=== PATIENT | male | born 1965 | race Caucasian/White ===

== ENCOUNTER → 2020-02-14 13:45 | Outpatient (ROUT) | payer MEDICARE, MEDICAID, SELFPAY ==
[2020-02-14 13:59] LABS: Add Manual Diff / Slide Review NO; Basophils Absolute Auto 100 /uL (0-100); Basophils Percent Auto 0.9 % (0-2); Eosinophils Absolute Auto 200 /uL (0-450); Eosinophils Percent Auto 2.5 % (2-4); Hematocrit 39.6 % (41-53); Hemoglobin 13.5 g/dL (13.5-17.5); Lymphocytes Absolute Auto 1700 /uL (1100-4500); Mean Corpuscular Hemoglobin 27.6 PG (26-34); Mean Corpuscular Volume 81.2 fL (80-100); Monocytes Absolute Auto 400 /uL (0-900); Monocytes Percent Auto 4.4 % (3-14); Neutrophils Absolute Auto 6000 /uL (1500-7000); Neutrophils Percent Auto 72.2 % (50-75); Platelet Count 257 X10^3/uL (150-400); Red Blood Cell Count 4.88 X10^6/uL (4.5-5.9); Red Cell Distribution Width 14.6 % (11.6-14.8); White Blood Cell Count 8.3 X10^3/uL (4.5-11.0)
[2020-02-14 14:03] LABS: Alanine Aminotransferase 19 IU/L (<50); Albumin 3.7 g/dL (3.5-5.0); Albumin Globulin Ratio 1.3 (1.0-2.8); Alkaline Phosphatase 90 U/L (38-126); Aspartate Aminotransferase 19 IU/L (17-59); BUN Creatinine Ratio 16.4 (6-22); Bilirubin Total 0.3 mg/dL (0.2-1.3); Blood Urea Nitrogen 20 mg/dL (9-20); Calcium 9.3 mg/dL (8.4-10.2); Carbon Dioxide 26 mmol/L (22-32); Chloride 100 mmol/L (98-107); Estimated Glomerular Filt Rate > 60.0 mL/min (>60); Globulin 2.9 g/dL (1.7-4.1); Glucose 252 mg/dL (70-100); HEMOLYSIS < 15 (0-50); Potassium 4.5 mmol/L (3.4-5.1); Sodium 135 mmol/L (137-145); Total Protein 6.6 g/dL (6.3-8.2)
== END ==
PROVIDERS: PCP Internal Medicine; Visit Provider Internal Medicine
DX: E11.9 Type 2 diabetes mellitus without complications (principal); E78.5 Hyperlipidemia, unspecified; I10 Essential (primary) hypertension
CPT/HCPCS: 80053; 83036; 85025

== ENCOUNTER → 2020-02-15 11:56 | Outpatient (CLI) | payer MEDICARE, MEDICAID, SELFPAY | PROVIDERS: PCP Internal Medicine; Referring Provider Internal Medicine; Visit Provider Family Medicine | DX: E11.622 Type 2 diabetes mellitus with other skin ulcer (principal); L97.821 Non-pressure chronic ulcer of other part of left lower leg limited to breakdown of skin; Z89.511 Acquired absence of right leg below knee; Z89.512 Acquired absence of left leg below knee; L08.9 Local infection of the skin and subcutaneous tissue, unspecified | CPT/HCPCS: 11042; 87070; 87077; 87147; 87186; 87205; 99203; 99214 ==

== ENCOUNTER → 2020-02-21 20:43 | Outpatient (ROUT) | payer MEDICARE, MEDICAID, SELFPAY ==
[2020-02-22 22:46] LABS: COVID19 Sendout Not Detected (Not Detect)
== END ==
PROVIDERS: PCP Internal Medicine; Visit Provider Internal Medicine
DX: Z11.59 Encounter for screening for other viral diseases (principal)
CPT/HCPCS: 87635

== ENCOUNTER → 2020-02-22 11:41 | Outpatient (CLI) | payer MEDICARE, MEDICAID, SELFPAY | PROVIDERS: PCP Internal Medicine; Referring Provider Internal Medicine; Visit Provider Family Medicine | DX: E11.622 Type 2 diabetes mellitus with other skin ulcer (principal); L97.121 Non-pressure chronic ulcer of left thigh limited to breakdown of skin; L08.9 Local infection of the skin and subcutaneous tissue, unspecified; B95.1 Streptococcus, group B, as the cause of diseases classified elsewhere; B95.61 Methicillin susceptible Staphylococcus aureus infection as the cause of diseases classified elsewhere; B96.5 Pseudomonas (aeruginosa) (mallei) (pseudomallei) as the cause of diseases classified elsewhere; Z89.512 Acquired absence of left leg below knee; Z89.511 Acquired absence of right leg below knee | CPT/HCPCS: 36415; 73590; 85651; 86140; 99213; 99214 ==

== ENCOUNTER → 2020-02-22 11:53 | Outpatient (CLI) | payer MEDICARE, MEDICAID, SELFPAY ==
--- NOTE | 2020-02-22 | DI.RAD.S_ITS ---
PROCEDURE: XR TIBIA FIBULA RT 2V INDICATIONS: Local infection of the skin and subcutaneous tissue, unspeci TECHNIQUE: 2 views of the tibia and fibula were acquired. COMPARISON: None. FINDINGS: Bones: No fractures or dislocations. No suspicious bony lesions. Sharply demarcated below-knee amputation. No sign of osteomyelitis. Soft tissues: No suspicious soft tissue calcifications or masses. Several scattered surgical clips in the soft tissues, a small amount of focal gas is seen at the superficial border of the soft tissue stump of the BKA, medially, which appears to represent a cutaneous defect. IMPRESSION: Prior BKA, cutaneous laceration or ulceration medially, near the inferior aspect of the soft tissue stump. No osteomyelitis. Dictated by: Jaden Pearson M.D. on 02/22/2020 at 13:33 Approved by: Jaden Pearson M.D. on 02/22/2020 at 13:35
[2020-02-22 14:00] LABS: Erythrocyte Sedimentation Rate 30 MM/HR (0-15)
[2020-02-22 14:15] LABS: C-Reactive Protein Quant 1.3 mg/dL (<1.0)
== END ==
PROVIDERS: PCP Internal Medicine; Referring Provider Family Medicine; Visit Provider Family Medicine
DX: E11.622 Type 2 diabetes mellitus with other skin ulcer (principal); L97.121 Non-pressure chronic ulcer of left thigh limited to breakdown of skin; L08.9 Local infection of the skin and subcutaneous tissue, unspecified; Z89.512 Acquired absence of left leg below knee
CPT/HCPCS: 36415; 73590; 85651; 86140

== ENCOUNTER → 2020-02-23 12:52 | Outpatient (CLI) | payer MEDICARE, MEDICAID, SELFPAY ==
--- NOTE | 2020-02-23 | DI.RAD.S_ITS ---
PROCEDURE: XR CHEST 1V INDICATIONS: wound infection TECHNIQUE: One view of the chest was acquired. COMPARISON: None. FINDINGS: Surgical changes and devices: A PICC line extends from right-sided approach crossing the upper chest and extending inferiorly into the superior vena cava, with tip just below the azygos arch area.. Lungs and pleura: Lungs are clear considering reduced inspiratory volume. No pleural effusions or pneumothorax. Much of the left chest is not evaluated by this study. Mediastinum: Mediastinal contours appear normal. Heart size is normal. Bones and chest wall: No suspicious bony lesions. Overlying soft tissues appear unremarkable. IMPRESSION: PICC line in normal position from right-sided approach. Reduced inspiratory volume. Dictated by: Jaden Pearson M.D. on 02/23/2020 at 14:47 Approved by: Jaden Pearson M.D. on 02/23/2020 at 14:48
== END ==
PROVIDERS: PCP Internal Medicine; Referring Provider Internal Medicine; Visit Provider Internal Medicine
DX: Z45.2 Encounter for adjustment and management of vascular access device (principal); L08.89 Other specified local infections of the skin and subcutaneous tissue
CPT/HCPCS: 71045

== ENCOUNTER → 2020-02-27 09:55 | Outpatient (CLI) | payer MEDICARE, MEDICAID, SELFPAY | PROVIDERS: PCP Internal Medicine; Referring Provider Internal Medicine; Visit Provider Family Medicine | DX: E11.622 Type 2 diabetes mellitus with other skin ulcer (principal); L97.121 Non-pressure chronic ulcer of left thigh limited to breakdown of skin; L08.9 Local infection of the skin and subcutaneous tissue, unspecified; L53.8 Other specified erythematous conditions; Z89.511 Acquired absence of right leg below knee; Z89.512 Acquired absence of left leg below knee | CPT/HCPCS: 11042; 99214 ==

== ENCOUNTER → 2020-03-07 08:53 | Outpatient (CLI) | payer MEDICARE, MEDICAID, SELFPAY | PROVIDERS: PCP Internal Medicine; Referring Provider Internal Medicine; Visit Provider Family Medicine | DX: E11.622 Type 2 diabetes mellitus with other skin ulcer (principal); L97.121 Non-pressure chronic ulcer of left thigh limited to breakdown of skin; Z89.511 Acquired absence of right leg below knee; Z89.512 Acquired absence of left leg below knee; L08.9 Local infection of the skin and subcutaneous tissue, unspecified; Z79.2 Long term (current) use of antibiotics | CPT/HCPCS: 11042; 99213 ==

== ENCOUNTER → 2020-03-14 09:59 | Outpatient (CLI) | payer MEDICARE, MEDICAID, SELFPAY | PROVIDERS: PCP Internal Medicine; Referring Provider Internal Medicine; Visit Provider Family Medicine | DX: L97.821 Non-pressure chronic ulcer of other part of left lower leg limited to breakdown of skin (principal); Z89.512 Acquired absence of left leg below knee; E11.622 Type 2 diabetes mellitus with other skin ulcer; E11.40 Type 2 diabetes mellitus with diabetic neuropathy, unspecified | CPT/HCPCS: 11042 ==

== ENCOUNTER → 2020-03-21 10:17 | Outpatient (CLI) | payer MEDICARE, MEDICAID, SELFPAY | PROVIDERS: PCP Internal Medicine; Referring Provider Internal Medicine; Visit Provider Family Medicine | DX: E11.622 Type 2 diabetes mellitus with other skin ulcer (principal); L97.121 Non-pressure chronic ulcer of left thigh limited to breakdown of skin; E11.21 Type 2 diabetes mellitus with diabetic nephropathy; Z89.511 Acquired absence of right leg below knee; Z89.512 Acquired absence of left leg below knee; Z48.01 Encounter for change or removal of surgical wound dressing | CPT/HCPCS: 11042; 36415; 80048; 80061; 82043; 82570; 83036; 84443; 99212 ==

== ENCOUNTER → 2020-03-21 10:31 | Outpatient (CLI) | payer MEDICARE, MEDICAID, SELFPAY ==
[2020-03-21 11:33] LABS: Hemoglobin A1C% w Est Avg Glu 8.8 % (4.0-6.0)
[2020-03-21 11:39] LABS: Blood Urea Nitrogen 25 mg/dL (9-20); Calcium 9.8 mg/dL (8.4-10.2); Carbon Dioxide 32 mmol/L (22-32); Chloride 98 mmol/L (98-107); Cholesterol 111 mg/dL (140-199); Estimated Glomerular Filt Rate 59.7 mL/min (>60); Glucose 140 mg/dL (70-100); HDL Cholesterol 39 mg/dL (40-60); HEMOLYSIS < 15 (0-50); LDL Cholesterol Calculated 48 mg/dL (<100); Potassium 4.2 mmol/L (3.4-5.1); Sodium 137 mmol/L (137-145); Triglycerides 121 mg/dL (35-150)
[2020-03-21 11:40] LABS: Creatinine Urine Random 68.6 mg/dL
[2020-03-21 12:08] LABS: Thyroid Stimulating Hormone 2.45 uIU/mL (0.47-4.68)
[2020-03-21 12:16] LABS: Microalbumi Creatinin Ratio Ur 5612.2 ug/mg CR (<30)
== END ==
PROVIDERS: PCP Internal Medicine; Referring Provider Nurse Practitioner Family; Visit Provider Nurse Practitioner Family
DX: E11.21 Type 2 diabetes mellitus with diabetic nephropathy (principal)
CPT/HCPCS: 36415; 80048; 80061; 82043; 82570; 83036; 84443

== ENCOUNTER → 2020-03-28 10:30 | Outpatient (CLI) | payer MEDICARE, MEDICAID, SELFPAY | PROVIDERS: PCP Internal Medicine; Referring Provider Internal Medicine; Visit Provider Family Medicine | DX: Z89.512 Acquired absence of left leg below knee (principal); Z48.01 Encounter for change or removal of surgical wound dressing | CPT/HCPCS: 99212 ==

== ENCOUNTER → 2020-05-08 08:06 | Outpatient (ROUT) | payer MEDICARE, MEDICAID, SELFPAY ==
[2020-05-08 09:27] LABS: BUN Creatinine Ratio 17.7 (6-22); Blood Urea Nitrogen 26 mg/dL (9-20); Calcium 9.5 mg/dL (8.4-10.2); Carbon Dioxide 30 mmol/L (22-32); Chloride 98 mmol/L (98-107); Estimated Glomerular Filt Rate 49.6 mL/min (>60); Glucose 172 mg/dL (70-100); HEMOLYSIS < 15 (0-50); Potassium 4.1 mmol/L (3.4-5.1); Sodium 136 mmol/L (137-145)
== END ==
PROVIDERS: PCP Internal Medicine; Visit Provider Nurse Practitioner Family
DX: E11.69 Type 2 diabetes mellitus with other specified complication (principal); Z79.4 Long term (current) use of insulin; R60.9 Edema, unspecified
CPT/HCPCS: 36415; 80048; 83036

== ENCOUNTER → 2020-05-17 08:31 | Outpatient (ROUT) | payer MEDICARE, MEDICAID, SELFPAY ==
[2020-05-17 09:18] LABS: Blood Urea Nitrogen 24 mg/dL (9-20); Carbon Dioxide 30 mmol/L (22-32); Chloride 99 mmol/L (98-107); Estimated Glomerular Filt Rate 55.6 mL/min (>60); Glucose 189 mg/dL (70-100); HEMOLYSIS < 15 (0-50); Hemoglobin A1C% w Est Avg Glu 8.1 % (4.0-6.0); Potassium 3.5 mmol/L (3.4-5.1); Sodium 137 mmol/L (137-145)
== END ==
PROVIDERS: PCP Internal Medicine; Visit Provider Nurse Practitioner Gerontology
DX: E11.9 Type 2 diabetes mellitus without complications (principal); N17.9 Acute kidney failure, unspecified
CPT/HCPCS: 36415; 80048; 83036

== ENCOUNTER 2020-05-24 17:25 | Emergency (ER) | payer MEDICARE, MEDICAID, SELFPAY ==
[2020-05-24] VITALS (12 sets, daily range): BP systolic 81–137; BP diastolic 54–63; PULSE 69–76; RESP 16–24; TEMP 36.4; O2SAT 95–100; BMI 40.6
[2020-05-24 17:50] LABS: Add Manual Diff / Slide Review NO; Basophils Absolute Auto 100 /uL (0-100); Basophils Percent Auto 0.8 % (0-2); Eosinophils Absolute Auto 200 /uL (0-450); Eosinophils Percent Auto 1.6 % (2-4); Hematocrit 38.6 % (41-53); Hemoglobin 12.8 g/dL (13.5-17.5); Lymphocytes Absolute Auto 1700 /uL (1100-4500); Lymphocytes Percent Auto 13.5 % (25-40); Mean Corpuscular HGB Conc 33.2 % (30-36); Mean Corpuscular Hemoglobin 26.9 PG (26-34); Monocytes Absolute Auto 600 /uL (0-900); Monocytes Percent Auto 4.6 % (3-14); Neutrophils Absolute Auto 10300 /uL (1500-7000); Neutrophils Percent Auto 79.5 % (50-75); Platelet Count 253 X10^3/uL (150-400); Red Blood Cell Count 4.76 X10^6/uL (4.5-5.9); Red Cell Distribution Width 15.7 % (11.6-14.8); White Blood Cell Count 12.9 X10^3/uL (4.5-11.0)
[2020-05-24 17:52] LABS: INR 1.1 (0.9-1.3)
[2020-05-24 17:55] LABS: PTT Partial Thromboplastin Tim 35 SECONDS (26.4-36.2)
[2020-05-24 17:57] LABS: Alanine Aminotransferase 19 IU/L (<50); Albumin 4.4 g/dL (3.5-5.0); Albumin Globulin Ratio 1.4 (1.0-2.8); Alkaline Phosphatase 86 U/L (38-126); Aspartate Aminotransferase 24 IU/L (17-59); BUN Creatinine Ratio 13.2 (6-22); Bilirubin Total 0.5 mg/dL (0.2-1.3); Blood Urea Nitrogen 49 mg/dL (9-20); Calcium 9.2 mg/dL (8.4-10.2); Carbon Dioxide 24 mmol/L (22-32); Chloride 100 mmol/L (98-107); Estimated Glomerular Filt Rate 17.1 mL/min (>60); Globulin 3.2 g/dL (1.7-4.1); Glucose 192 mg/dL (70-100); HEMOLYSIS < 15 (0-50); Lipase 51 U/L (23-300); Potassium 4.1 mmol/L (3.4-5.1); Sodium 138 mmol/L (137-145); Total Protein 7.6 g/dL (6.3-8.2)
--- NOTE | 2020-05-24 18:05 | ED.NAVMDI ---
HPI - Nausea/Vomiting/Diarrhea General Chief complaint: Nausea/Vomiting/Diarrhea Stated complaint: Abd Pain Time Seen by Provider: 05/24/20 17:39 Source: patient and EMS Mode of arrival: EMS Limitations: no limitations History of Present Illness HPI Narrative: 54-year-old gentleman who lives at [facility] with a history of morbid obesity, diabetes, hypertension, hyperlipidemia, cardiovascular disease, reflux who presents with 24 hours of diarrhea low-grade abdominal pain and orthostasis. The diarrhea started yesterday with some mild abdominal cramping cramping got worsened includes mostly the left lower quadrant but does extend to the right lower quadrant and left upper quadrant as well. The pain at one point was as bad as 6/10 and on presentation to the emergency department is currently 4/10 and a crampy discomfort. Describes the diarrhea as watery without any black stool or bloody stool. He denies any fevers. He states he has been somewhat nauseated but has not had any vomiting. He has had no cough, no chest pain no palpitations. He does note that he has been dizzy when sitting up over the course of today. Review of Systems Review of Systems Narrative: Pertinent positive and negative findings as per HPI Remainder of review of systems is otherwise unremarkable for Constitutional: Fevers, chills, weakness ENT: No sore throat, neck pain, ear pain : Dysuria, hematuria, flank pain MS: Muscle weakness, numbness, joint swelling or warmth Skin: Rashes, nonhealing lesions Neuro: dizziness, tingling Patient History Medical History ASCVD (arteriosclerotic cardiovascular disease) (Acute) Diabetes (Acute) Hyperlipidemia (Acute) Hypertension (Acute) Hypothyroidism (acquired) (Acute) Morbid obesity (Acute) Surgical History S/P bilateral BKA (below knee amputation) (Acute) Social History Smoking Status: Current some day smoker Smoking Status: Current some day smoker tobacco type: cigarettes alcohol intake frequency: holidays/special occasions only Substance Use Type: does not use Exam Narrative Exam Narrative: General: Morbidly obese, in no acute distress. Able to give a complete and coherent history. Well-nourished well-developed HEENT: Moist mucous membranes, normal sclera with reactive pupils, Neck: No JVD, supple Respiratory: Lungs are clear to auscultation, no wheezing no rales no rhonchi. Full and symmetrical air movement Cardiac: Regular rate and rhythm no murmurs no bruits Abdomen: Soft with moderate tenderness in the left lower quadrant, mild tenderness right lower quadrant left upper quadrant and no rebound or guarding, good bowel tones, no flank pain Skin: Warm and dry, no rashes Neurologic: Grossly neurologically intact with no obvious asymmetries or abnormalities Extremities: Bilateral BKA with stumps well-healed, No trauma, well perfused Psych: Cooperative, appropriate insight and affect Initial Vital Signs Initial Vital Signs: Vital Signs Temperature 97.6 F 05/24/20 17:33 Pulse Rate 73 05/24/20 17:33 Respiratory Rate 24 05/24/20 17:33 Blood Pressure 81/54 L 05/24/20 17:33 Pulse Oximetry 100 05/24/20 17:33 Course Orders Ordered: ED Orders 05/24/20 17:20 Complete Blood Count AUTO DIFF Stat Comprehensive Metabolic Panel Stat Lipase Stat Partial Thromboplastin Time Stat Prothrombin Time INR Stat 05/24/20 17:31 EKG-12 Lead Stat 05/24/20 17:49 Blood Culture Stat 05/24/20 17:51 Lactate (Lactic Acid) Stat 05/24/20 18:23 CT abdomen pelvis wo con Stat 05/24/20 18:24 GI Panel (Film Array) Stat 05/24/20 20:25 COVID19 -ED/INPAT/OR/L&D Stat Discontinued Medications Sodium Chloride (Normal Saline 0.9%) 1,000 mls @ 1,000 mls/hr IV BOLUS ONE Stop: 05/24/20 19:23 Last Infusion: 05/24/20 22:39 Dose: 0 mls/hr Documented by: Admin: 05/24/20 18:49 Dose: 1,000 mls/hr Documented by: KHADRA Sodium Chloride (Normal Saline 0.9%) 1,000 mls @ 1,000 mls/hr IV BOLUS ONE Stop: 05/25/20 00:14 Last Infusion: 05/25/20 00:24 Dose: 1,000 mls/hr Documented by: Admin: 05/24/20 23:16 Dose: 1,000 mls/hr Documented by: KHADRA Vital Signs Vital signs: Vital Signs - 8 hr 05/24/20 18:15 05/24/20 18:45 05/24/20 19:30 Pulse Rate 69 73 69 Respiratory Rate 23 16 18 Blood Pressure 137/61 104/56 L 106/58 L Pulse Oximetry 96 97 97 05/24/20 21:00 05/24/20 21:29 05/24/20 21:30 Pulse Rate 73 72 72 Respiratory Rate 18 Blood Pressure 116/57 L Pulse Oximetry 98 98 98 05/24/20 21:31 05/24/20 22:00 05/24/20 22:01 Pulse Rate 72 70 71 Respiratory Rate Blood Pressure 110/54 L 120/63 Pulse Oximetry 98 95 96 05/24/20 22:30 05/24/20 23:00 Pulse Rate 76 75 Respiratory Rate Blood Pressure Pulse Oximetry 97 98 MDM - Nausea/Vomiting/Diarrhea Medical Records Attestation: I reviewed the patient's medical records. Lab Data Attestation: I reviewed the patient's lab results. Lab results narrative: Patient had a routine screening covered swab done at his assisted living facility this morning. Result diagrams: 05/24/20 17:20 05/24/20 17:20 Labs: Lab Results 05/24/20 05/24/20 05/24/20 Range/Units 17:20 17:20 17:20 WBC 12.9 H (4.5-11.0) X10^3/uL RBC 4.76 (4.5-5.9) X10^6/uL Hgb 12.8 L (13.5-17.5) g/dL Hct 38.6 L (41-53) % MCV 81.0 (80-100) fL MCH 26.9 (26-34) PG MCHC 33.2 (30-36) % RDW 15.7 H (11.6-14.8) % Plt Count 253 (150-400) X10^3/uL Neut % (Auto) 79.5 H (50-75) % Lymph % (Auto) 13.5 L (25-40) % [place] % (Auto) 4.6 (3-14) % Eos % (Auto) 1.6 L (2-4) % Baso % (Auto) 0.8 (0-2) % Neut # (Auto) 32458 H (3127-1261) /uL Lymph # (Auto) 1700 (6623-4911) /uL [place] # (Auto) 600 (0-900) /uL Eos # (Auto) 200 (0-450) /uL Baso # (Auto) 100 (0-100) /uL PT 13.0 H (10.1-12.7) SECONDS INR 1.1 (0.9-1.3) APTT 35 (26.4-36.2) SECONDS Sodium 138 (137-145) mmol/L Potassium 4.1 (3.4-5.1) mmol/L Chloride 100 (98-107) mmol/L Carbon Dioxide 24 (22-32) mmol/L BUN 49 H (9-20) mg/dL Creatinine 3.70 H (0.66-1.25) mg/dL Estimated GFR 17.1 L (>60) mL/min BUN/Creatinine Ratio 13.2 (6-22) Glucose 192 H (70-100) mg/dL Lactate (0.7-2.1) mmol/L Calcium 9.2 (8.4-10.2) mg/dL Total Bilirubin 0.5 (0.2-1.3) mg/dL AST 24 (17-59) IU/L ALT 19 (<50) IU/L Alkaline Phosphatase 86 (38-126) U/L Total Protein 7.6 (6.3-8.2) g/dL Albumin 4.4 (3.5-5.0) g/dL Globulin 3.2 (1.7-4.1) g/dL Albumin/Globulin Ratio 1.4 (1.0-2.8) Lipase 51 (23-300) U/L Stl C. cayetanensis PCR (Not Detect) Stool Rotavirus (PCR) (Not Detect) Stool Adenovirus (PCR) (Not Detect) Stool Astrovirus (PCR) (Not Detect) Stool Cryptosporidium PCR (Not Detect) Stl E.coli Shiga Tox PCR (Not Detect) St Sh/Enteroin Ecoli PCR (Not Detect) Stool E coli O157 PCR Stl Enterotoxigenic E PCR (Not Detect) Stool EPEC (PCR) (Not Detect) Stl E. histolytica PCR (Not Detect) Stool Giardia Lamblia PCR (Not Detect) Stool Sapovirus (PCR) (Not Detect) Stl P. shigelloides PCR (Not Detect) St Y.enterocolitica PCR (Not Detect) Stool Vibrio (PCR) (Not Detect) Stl Vibrio cholerae PCR (Not Detect) Stl Enteroaggr Ecoli PCR (Not Detect) Stl Norovirus GI/GII PCR (Not Detect) Campylobacter (PCR) (Not Detect) C. difficile Tox (PCR) (Not Detect) COVID-19 PCR (Negative) Salmonella (PCR) (Not Detect) 05/24/20 05/24/20 05/24/20 Range/Units 17:51 17:51 18:24 WBC (4.5-11.0) X10^3/uL RBC (4.5-5.9) X10^6/uL Hgb (13.5-17.5) g/dL Hct (41-53) % MCV (80-100) fL MCH (26-34) PG MCHC (30-36) % RDW (11.6-14.8) % Plt Count (150-400) X10^3/uL Neut % (Auto) (50-75) % Lymph % (Auto) (25-40) % [place] % (Auto) (3-14) % Eos % (Auto) (2-4) % Baso % (Auto) (0-2) % Neut # (Auto) (6568-3194) /uL Lymph # (Auto) (9630-0704) /uL [place] # (Auto) (0-900) /uL Eos # (Auto) (0-450) /uL Baso # (Auto) (0-100) /uL PT (10.1-12.7) SECONDS INR (0.9-1.3) APTT (26.4-36.2) SECONDS Sodium (137-145) mmol/L Potassium (3.4-5.1) mmol/L Chloride (98-107) mmol/L Carbon Dioxide (22-32) mmol/L BUN (9-20) mg/dL Creatinine (0.66-1.25) mg/dL Estimated GFR (>60) mL/min BUN/Creatinine Ratio (6-22) Glucose (70-100) mg/dL Lactate 1.5 Cancelled (0.7-2.1) mmol/L Calcium (8.4-10.2) mg/dL Total Bilirubin (0.2-1.3) mg/dL AST (17-59) IU/L ALT (<50) IU/L Alkaline Phosphatase (38-126) U/L Total Protein (6.3-8.2) g/dL Albumin (3.5-5.0) g/dL Globulin (1.7-4.1) g/dL Albumin/Globulin Ratio (1.0-2.8) Lipase (23-300) U/L Stl C. cayetanensis PCR Not detected (Not Detect) Stool Rotavirus (PCR) Not detected (Not Detect) Stool Adenovirus (PCR) Not detected (Not Detect) Stool Astrovirus (PCR) Not detected (Not Detect) Stool Cryptosporidium PCR Not detected (Not Detect) Stl E.coli Shiga Tox PCR Not detected (Not Detect) St Sh/Enteroin Ecoli PCR Not detected (Not Detect) Stool E coli O157 PCR Not Reportable Stl Enterotoxigenic E PCR Not detected (Not Detect) Stool EPEC (PCR) Not detected (Not Detect) Stl E. histolytica PCR Not detected (Not Detect) Stool Giardia Lamblia PCR Not detected (Not Detect) Stool Sapovirus (PCR) Not detected (Not Detect) Stl P. shigelloides PCR Not detected (Not Detect) St Y.enterocolitica PCR Not detected (Not Detect) Stool Vibrio (PCR) Not detected (Not Detect) Stl Vibrio cholerae PCR Not detected (Not Detect) Stl Enteroaggr Ecoli PCR Not detected (Not Detect) Stl Norovirus GI/GII PCR Not detected (Not Detect) Campylobacter (PCR) Not detected (Not Detect) C. difficile Tox (PCR) Not detected (Not Detect) COVID-19 PCR (Negative) Salmonella (PCR) Not detected (Not Detect) 05/24/20 Range/Units 20:25 WBC (4.5-11.0) X10^3/uL RBC (4.5-5.9) X10^6/uL Hgb (13.5-17.5) g/dL Hct (41-53) % MCV (80-100) fL MCH (26-34) PG MCHC (30-36) % RDW (11.6-14.8) % Plt Count (150-400) X10^3/uL Neut % (Auto) (50-75) % Lymph % (Auto) (25-40) % [place] % (Auto) (3-14) % Eos % (Auto) (2-4) % Baso % (Auto) (0-2) % Neut # (Auto) (0575-8592) /uL Lymph # (Auto) (4051-6027) /uL [place] # (Auto) (0-900) /uL Eos # (Auto) (0-450) /uL Baso # (Auto) (0-100) /uL PT (10.1-12.7) SECONDS INR (0.9-1.3) APTT (26.4-36.2) SECONDS Sodium (137-145) mmol/L Potassium (3.4-5.1) mmol/L Chloride (98-107) mmol/L Carbon Dioxide (22-32) mmol/L BUN (9-20) mg/dL Creatinine (0.66-1.25) mg/dL Estimated GFR (>60) mL/min BUN/Creatinine Ratio (6-22) Glucose (70-100) mg/dL Lactate (0.7-2.1) mmol/L Calcium (8.4-10.2) mg/dL Total Bilirubin (0.2-1.3) mg/dL AST (17-59) IU/L ALT (<50) IU/L Alkaline Phosphatase (38-126) U/L Total Protein (6.3-8.2) g/dL Albumin (3.5-5.0) g/dL Globulin (1.7-4.1) g/dL Albumin/Globulin Ratio (1.0-2.8) Lipase (23-300) U/L Stl C. cayetanensis PCR (Not Detect) Stool Rotavirus (PCR) (Not Detect) Stool Adenovirus (PCR) (Not Detect) Stool Astrovirus (PCR) (Not Detect) Stool Cryptosporidium PCR (Not Detect) Stl E.coli Shiga Tox PCR (Not Detect) St Sh/Enteroin Ecoli PCR (Not Detect) Stool E coli O157 PCR Stl Enterotoxigenic E PCR (Not Detect) Stool EPEC (PCR) (Not Detect) Stl E. histolytica PCR (Not Detect) Stool Giardia Lamblia PCR (Not Detect) Stool Sapovirus (PCR) (Not Detect) Stl P. shigelloides PCR (Not Detect) St Y.enterocolitica PCR (Not Detect) Stool Vibrio (PCR) (Not Detect) Stl Vibrio cholerae PCR (Not Detect) Stl Enteroaggr Ecoli PCR (Not Detect) Stl Norovirus GI/GII PCR (Not Detect) Campylobacter (PCR) (Not Detect) C. difficile Tox (PCR) (Not Detect) COVID-19 PCR Negative (Negative) Salmonella (PCR) (Not Detect) Urine Dip Bedside Urine Glucose Negative Bedside Urine Bilirubin - Negative Bedside Urine Ketone - Negative Urine Specific [place] 1.025 Bedside Urine Occult Blood - Negative Bedside Urine pH 5.5 Bedside Urine Protein - Negative Bedside Urine Urobilinogen - Negative Bedside Urine Nitrite - Negative Bedside Urine Leukocytes - Negative Esterase Imaging Data CT scan - abdomen/pelvis: Radiologist's Impression: FINDINGS: Image quality: Excellent. ABDOMEN: Lung bases: Lung bases are clear. Heart size is normal. Solid organs: Liver is normal in size. Gallbladder negative . Pancreas is normal in contours. Spleen is normal in size. No adrenal nodules. Hypoattenuating renal foci, statistically cysts, although technically indeterminate in the absence of IV contrast. Large amount of fluid and gas present within the colon raising possibility of enterocolitis. No free fluid or air. There are presumed appendicoliths seen however no definite pathologic dilatation or periappendiceal inflammatory fat stranding. Nodes and vessels: No retroperitoneal or mesenteric adenopathy by size criteria. Aorta and inferior vena cava are normal in caliber. Miscellaneous: No ventral hernias. PELVIS: Genitourinary: Bladder wall thickness is normal. Miscellaneous: No inguinal hernias or adenopathy. Bones: No vertebral body compression fracture. Spondylytic changes and facet arthropathy. Presumed L5 vertebral body hemangioma with internal trabecula. IMPRESSION: Incidentally noted appendicoliths without other CT evidence of acute appendicitis No hydronephrosis Large amount of fluid and gas within the colon raising possibility of enterocolitis, and/or malabsorption. Dictated by: Erik Najera M.D. on 05/24/2020 at 18:49 MDM Narrative Medical decision making narrative: 54-year-old gentleman final presents with hypotension and dizziness after 24 hours of diarrhea with a blood pressure of 81/54. Responds nicely to a L of fluid with blood pressure up to 130 systolic range. Labs reviewed and is noted to have a jump in creatinine over the last 7 days from 1.3-3.4. Stool you sent for PCR. He does have mildly tender abdomen slightly elevated white count at 12.9 with slight left shift. Given the pain and the acute change to renal function will go ahead and do a CT scan without contrast today. Without any crackles or JVD or other clinical signs or symptoms of congestive heart failure at this time will go ahead and give him 2nd L of fluid. Will go ahead and check a covid screen with anticipation of admission. We will need to be transferred to facility where Nephrology and dialysis is available if required. CT scan suggests an enterocolitis, stool results are currently pending, in light of his acute renal failure secondary to diarrhea will work on appropriate transfer and admission. He is hemodynamically clinically stable at this time. discussed transfer to [facility]. 8:43pm spoke with [facility]. Hospitalist Dr. Kelley. Transfer is accepted. Stool PCR returns negative for all enteric pathogens including Clostridium difficile. 9:50 Pt has decided he does not want to go to [facility] and for to go to [facility]. Beds are available at [facility]. Has spoken with Dr. Lorenzo Chandler, hospitalist. Will except the patient in transfer. Discharge Plan Departure Patient Disposition: [facility] Clinical Impression: Acute dehydration Diarrhea Qualifiers: Diarrhea type: unspecified type Qualified Code(s): R19.7 - Diarrhea, unspecified Acute renal failure Qualifiers: Acute renal failure type: unspecified Qualified Code(s): N17.9 - Acute kidney failure, unspecified Discharge Date/Time: 05/24/20 23:20 Referrals: Tavia Zarate MD [Primary Care Provider] -
[2020-05-24 18:17] LABS: Lactate (Lactic Acid) 1.5 mmol/L (0.7-2.1)
--- NOTE | 2020-05-24 18:23 | DI.CT.S_ITS ---
PROCEDURE: CT ABDOMEN PELVIS WO CON INDICATIONS: abd pain (LLQ), diarrhea, new renal failure TECHNIQUE: Noncontrast 5 mm thick sections acquired from the diaphragms to the symphysis. 5 mm coronal and sagittal reformats were then performed. For radiation dose reduction, the following was used: automated exposure control, adjustment of mA and/or kV according to patient size. COMPARISON: None. FINDINGS: Image quality: Excellent. ABDOMEN: Lung bases: Lung bases are clear. Heart size is normal. Solid organs: Liver is normal in size. Gallbladder negative . Pancreas is normal in contours. Spleen is normal in size. No adrenal nodules. Hypoattenuating renal foci, statistically cysts, although technically indeterminate in the absence of IV contrast. Large amount of fluid and gas present within the colon raising possibility of enterocolitis. No free fluid or air. There are presumed appendicoliths seen however no definite pathologic dilatation or periappendiceal inflammatory fat stranding. Nodes and vessels: No retroperitoneal or mesenteric adenopathy by size criteria. Aorta and inferior vena cava are normal in caliber. Miscellaneous: No ventral hernias. PELVIS: Genitourinary: Bladder wall thickness is normal. Miscellaneous: No inguinal hernias or adenopathy. Bones: No vertebral body compression fracture. Spondylytic changes and facet arthropathy. Presumed L5 vertebral body hemangioma with internal trabecula. IMPRESSION: Incidentally noted appendicoliths without other CT evidence of acute appendicitis No hydronephrosis Large amount of fluid and gas within the colon raising possibility of enterocolitis, and/or malabsorption. Dictated by: Erik Najera M.D. on 05/24/2020 at 18:49 Approved by: Erik Najera M.D. on 05/24/2020 at 18:54
[2020-05-24] MEDS: SODIUM CHLORIDE 0.9% 1,000 ML 1000 ML IV ×2 (18:49→23:16)
[2020-05-24 20:43] LABS: Adenovirus F 40/41 Not Detected (Not Detect); Astrovirus Not Detected (Not Detect); Campylobacter Not Detected (Not Detect); Clostridium difficile toxin AB Not Detected (Not Detect); Cryptosporidium Not Detected (Not Detect); Cyclospora cayetanensis Not Detected (Not Detect); Entamoeba histolytica Not Detected (Not Detect); Enteroaggregative E.coli Not Detected (Not Detect); Enteropathogenic E.coli Not Detected (Not Detect); Enterotoxigenic E.coli It/st Not Detected (Not Detect); Giardia lamblia Not Detected (Not Detect); Norovirus GI/GII Not Detected (Not Detect); Plesiomonsa shigelloides Not Detected (Not Detect); Rotavirus A Not Detected (Not Detect); Salmonella Not Detected (Not Detect); Sapovirus Not Detected (Not Detect); Shiga-like toxin-prod E.coli Not Detected (Not Detect); Shigella/Enteroinvasive E.coli Not Detected (Not Detect); Vibrio Not Detected (Not Detect); Vibrio cholerae Not Detected (Not Detect); Yersinia enterocolitica Not Detected (Not Detect)
[2020-05-24 23:03] LABS: COVID19 -Nasal RAPID Negative (Negative)
== END 2020-05-24 23:20 | disposition short-term general hospital (02) ==
PROVIDERS: Emergency Medicine; Emergency Provider Emergency Medicine; PCP Internal Medicine
DX: E86.0 Dehydration (principal); R19.7 Diarrhea, unspecified; N17.9 Acute kidney failure, unspecified; I95.1 Orthostatic hypotension; K21.9 Gastro-esophageal reflux disease without esophagitis; D72.829 Elevated white blood cell count, unspecified; E66.01 Morbid (severe) obesity due to excess calories; E11.9 Type 2 diabetes mellitus without complications; I10 Essential (primary) hypertension; E78.5 Hyperlipidemia, unspecified; I25.10 Atherosclerotic heart disease of native coronary artery without angina pectoris
CPT/HCPCS: 36415; 74176; 80053; 81003; 83605; 83690; 85025; 85610; 85730; 87040; 87507; 87635; 96360; 96361; 99284

== ENCOUNTER → 2020-06-05 08:31 | Outpatient (ROUT) | payer MEDICARE, MEDICAID, SELFPAY ==
[2020-06-05 09:58] LABS: Add Manual Diff / Slide Review NO; Basophils Absolute Auto 0 /uL (0-100); Basophils Percent Auto 0.4 % (0-2); Eosinophils Absolute Auto 200 /uL (0-450); Eosinophils Percent Auto 3.3 % (2-4); Hematocrit 35.8 % (41-53); Hemoglobin 11.9 g/dL (13.5-17.5); Lymphocytes Absolute Auto 1100 /uL (1100-4500); Lymphocytes Percent Auto 21.7 % (25-40); Mean Corpuscular HGB Conc 33.4 % (30-36); Mean Corpuscular Hemoglobin 29.4 PG (26-34); Mean Corpuscular Volume 88.2 fL (80-100); Monocytes Absolute Auto 600 /uL (0-900); Monocytes Percent Auto 11.1 % (3-14); Neutrophils Absolute Auto 3200 /uL (1500-7000); Neutrophils Percent Auto 63.5 % (50-75); Platelet Count 271 X10^3/uL (150-400); Red Blood Cell Count 4.05 X10^6/uL (4.5-5.9); Red Cell Distribution Width 14.5 % (11.6-14.8)
[2020-06-05 10:24] LABS: Alanine Aminotransferase 9 IU/L (<50); Albumin 3.4 g/dL (3.5-5.0); Alkaline Phosphatase 84 U/L (38-126); Aspartate Aminotransferase 18 IU/L (17-59); BUN Creatinine Ratio 28.4 (6-22); Bilirubin Total 0.2 mg/dL (0.2-1.3); Blood Urea Nitrogen 19 mg/dL (9-20); Calcium 8.9 mg/dL (8.4-10.2); Carbon Dioxide 25 mmol/L (22-32); Chloride 108 mmol/L (98-107); Estimated Glomerular Filt Rate > 60.0 mL/min (>60); Globulin 3.4 g/dL (1.7-4.1); Glucose 91 mg/dL (70-100); HEMOLYSIS < 15 (0-50); Potassium 3.9 mmol/L (3.4-5.1); Sodium 140 mmol/L (137-145); Total Protein 6.8 g/dL (6.3-8.2)
== END ==
PROVIDERS: PCP Internal Medicine; Visit Provider Nurse Practitioner Gerontology
DX: D64.9 Anemia, unspecified (principal); N17.9 Acute kidney failure, unspecified
CPT/HCPCS: 36415; 80053; 85025

== ENCOUNTER → 2020-06-07 13:56 | Outpatient (ROUT) | payer MEDICARE, MEDICAID, SELFPAY ==
[2020-06-07 14:52] LABS: Clostridium Difficile Tox PCR Negative for C. diff
== END ==
PROVIDERS: PCP Internal Medicine; Visit Provider Internal Medicine
DX: R19.7 Diarrhea, unspecified (principal); K52.9 Noninfective gastroenteritis and colitis, unspecified
CPT/HCPCS: 87493

== ENCOUNTER → 2020-06-08 12:35 | Outpatient (ROUT) | payer MEDICARE, MEDICAID, SELFPAY ==
[2020-06-09 10:08] LABS: COVID19 Sendout Not Detected (Not Detected)
== END ==
PROVIDERS: PCP Internal Medicine; Visit Provider Internal Medicine
DX: Z11.59 Encounter for screening for other viral diseases (principal)
CPT/HCPCS: 87635

== ENCOUNTER → 2020-06-13 13:59 | Outpatient (CLI) | payer MEDICARE, MEDICAID, SELFPAY | PROVIDERS: PCP Internal Medicine; Referring Provider Internal Medicine; Visit Provider Family Medicine | DX: E11.622 Type 2 diabetes mellitus with other skin ulcer (principal); L97.811 Non-pressure chronic ulcer of other part of right lower leg limited to breakdown of skin; L08.9 Local infection of the skin and subcutaneous tissue, unspecified; E11.51 Type 2 diabetes mellitus with diabetic peripheral angiopathy without gangrene; Z79.4 Long term (current) use of insulin; Z89.511 Acquired absence of right leg below knee | CPT/HCPCS: 11042; 87070; 87075; 87077; 87147; 87186; 87205; 99213; 99214 ==

== ENCOUNTER → 2020-06-20 10:49 | Outpatient (CLI) | payer MEDICARE, MEDICAID, SELFPAY | PROVIDERS: PCP Internal Medicine; Referring Provider Internal Medicine; Visit Provider Family Medicine | DX: E11.622 Type 2 diabetes mellitus with other skin ulcer (principal); L97.811 Non-pressure chronic ulcer of other part of right lower leg limited to breakdown of skin; Z89.511 Acquired absence of right leg below knee | CPT/HCPCS: 11042; 99213 ==

== ENCOUNTER → 2020-06-27 13:51 | Outpatient (CLI) | payer MEDICARE, MEDICAID, SELFPAY | PROVIDERS: PCP Internal Medicine; Referring Provider Internal Medicine; Visit Provider Family Medicine | DX: E11.622 Type 2 diabetes mellitus with other skin ulcer (principal); L97.811 Non-pressure chronic ulcer of other part of right lower leg limited to breakdown of skin; E11.40 Type 2 diabetes mellitus with diabetic neuropathy, unspecified; Z89.511 Acquired absence of right leg below knee | CPT/HCPCS: 99212; 99213 ==

== ENCOUNTER → 2020-07-12 07:50 | Outpatient (ROUT) | payer MEDICARE, MEDICAID, SELFPAY ==
[2020-07-12 08:41] LABS: Hemoglobin A1C% w Est Avg Glu 6.9 % (4.0-6.0)
== END ==
PROVIDERS: PCP Internal Medicine; Visit Provider Nurse Practitioner Family
DX: E10.9 Type 1 diabetes mellitus without complications (principal)
CPT/HCPCS: 36415; 83036

== ENCOUNTER → 2020-07-31 13:54 | Outpatient (CLI) | payer MEDICARE, MEDICAID, SELFPAY ==
--- NOTE | 2020-07-31 | DI.ECHO.S_ITS ---
[facility]---------+ [facility] +---------+ : : [address] : : : : [id number] : : : : Phone: [phone] Echocardiogram Report + + :Name: WILLIAM MARTINEZ Study Date: 07/31/2020 Height: 72 in : :[facility] Weight: 300 lb : : Gender: Male BSA: 2.5 m2 : :: 1965 Age: 54 yrs BP: 138/86 mmHg: :Reason For Study: CORONARY ARTERY DISEASE : :Ordering Physician: MARIBEL, : :GREGORIO Performed By: Libra Rodriguez : :Referring: GREGORIO HENDERSON : + + Interpretation Summary Limited Echo: 1) Normal left ventricular size and systolic function (EF 65-70%). 2) Apical anterolateral wall is hypokinetic. 3) No prior Echo available for comparison. Procedure: A two-dimensional transthoracic echocardiogram was performed in limited views only. A contrast injection of Definity was performed to improve assessment of LV function. Contrast was injected into an intravenous site in the left arm. The patient was in sinus rhythm with heart rates between 74-89 bpm during the exam. Left Ventricle: The estimated left ventricular end diastolic volume is 98 ml. The left ventricle is normal in size. The ejection fraction is estimated to be 65-70%. Left ventricular systolic function is normal. Apical anterolateral wall is hypokinetic. Right Ventricle: The right ventricular systolic function is normal. Atria: The left atrium is moderately dilated. Right atrial size is normal. Pericardium/ Pleura There is no pericardial effusion. MMode/2D Measurements & Calculations LA A2 area: 30.4 cm2 RA long axis: 5.4 cm LA A4 area: 25.8 cm2 RA area: 20.2 cm2 LA length (vol): 5.8 cm RA vol: 63.7 ml LA vol: 113.9 ml RA : 25.2 ml/m2 LA vol index: 45.0 ml/m2 TAPSE: 2.5 cm Reading Physician:03:18 PM
== END ==
PROVIDERS: PCP Internal Medicine; Referring Provider Internal Medicine Cardiovascular Disease; Visit Provider Internal Medicine Cardiovascular Disease
DX: I25.10 Atherosclerotic heart disease of native coronary artery without angina pectoris (principal)
CPT/HCPCS: 93307; Q9957

== ENCOUNTER → 2020-08-07 12:28 | Outpatient (ROUT) | payer MEDICARE, MEDICAID, SELFPAY ==
[2020-08-07 13:17] LABS: Add Manual Diff / Slide Review NO; Basophils Absolute Auto 100 /uL (0-100); Basophils Percent Auto 0.9 % (0-2); Eosinophils Absolute Auto 200 /uL (0-450); Eosinophils Percent Auto 2.4 % (2-4); Hemoglobin 13.7 g/dL (13.5-17.5); Lymphocytes Absolute Auto 1500 /uL (1100-4500); Lymphocytes Percent Auto 18.1 % (25-40); Mean Corpuscular HGB Conc 34.3 % (30-36); Mean Corpuscular Hemoglobin 27.6 PG (26-34); Mean Corpuscular Volume 80.5 fL (80-100); Monocytes Absolute Auto 400 /uL (0-900); Monocytes Percent Auto 5.2 % (3-14); Neutrophils Absolute Auto 6100 /uL (1500-7000); Neutrophils Percent Auto 73.4 % (50-75); Platelet Count 182 X10^3/uL (150-400); Red Blood Cell Count 4.97 X10^6/uL (4.5-5.9); Red Cell Distribution Width 14.9 % (11.6-14.8); White Blood Cell Count 8.3 X10^3/uL (4.5-11.0)
[2020-08-07 13:35] LABS: BUN Creatinine Ratio 13.5 (6-22); Blood Urea Nitrogen 15 mg/dL (9-20); Carbon Dioxide 29 mmol/L (22-32); Chloride 102 mmol/L (98-107); Cholesterol 127 mg/dL (140-199); Estimated Glomerular Filt Rate > 60.0 mL/min (>60); Glucose 192 mg/dL (70-100); HDL Cholesterol 30 mg/dL (40-60); HEMOLYSIS < 15 (0-50); LDL Cholesterol Calculated 38 mg/dL (<100); Sodium 135 mmol/L (137-145); Triglycerides 297 mg/dL (35-150)
[2020-08-07 15:14] LABS: Hemoglobin A1C% w Est Avg Glu 7.2 % (4.0-6.0)
== END ==
PROVIDERS: PCP Internal Medicine; Visit Provider Internal Medicine Cardiovascular Disease
DX: I10 Essential (primary) hypertension (principal); E78.5 Hyperlipidemia, unspecified; E11.9 Type 2 diabetes mellitus without complications
CPT/HCPCS: 36415; 80048; 80061; 83036; 85025

== ENCOUNTER → 2020-08-21 06:37 | Outpatient (ROUT) | payer MEDICARE, MEDICAID, SELFPAY ==
[2020-08-21 06:55] LABS: BUN Creatinine Ratio 13.6 (6-22); Blood Urea Nitrogen 19 mg/dL (9-20); Calcium 9.2 mg/dL (8.4-10.2); Carbon Dioxide 33 mmol/L (22-32); Chloride 105 mmol/L (98-107); Estimated Glomerular Filt Rate 52.4 mL/min (>60); Glucose 158 mg/dL (70-100); HEMOLYSIS < 15 (0-50); Potassium 3.8 mmol/L (3.4-5.1); Sodium 142 mmol/L (137-145)
== END ==
PROVIDERS: PCP Internal Medicine; Visit Provider Nurse Practitioner Family
DX: E11.9 Type 2 diabetes mellitus without complications (principal)
CPT/HCPCS: 36415; 80048

== ENCOUNTER → 2020-08-30 08:18 | Outpatient (ROUT) | payer MEDICARE, MEDICAID, SELFPAY ==
[2020-08-30 09:06] LABS: BUN Creatinine Ratio 13.1 (6-22); Blood Urea Nitrogen 16 mg/dL (9-20); Carbon Dioxide 31 mmol/L (22-32); Chloride 105 mmol/L (98-107); Estimated Glomerular Filt Rate > 60.0 mL/min (>60); Glucose 128 mg/dL (70-100); HEMOLYSIS < 15 (0-50); Potassium 3.5 mmol/L (3.4-5.1); Sodium 141 mmol/L (137-145)
== END ==
PROVIDERS: PCP Internal Medicine; Visit Provider Nurse Practitioner Family
DX: E11.69 Type 2 diabetes mellitus with other specified complication (principal)
CPT/HCPCS: 36415; 80048

== ENCOUNTER → 2020-11-19 14:19 | Outpatient (ROUT) | payer MEDICARE, MEDICAID, SELFPAY | PROVIDERS: PCP Internal Medicine; Visit Provider Internal Medicine | DX: L02.214 Cutaneous abscess of groin (principal) | CPT/HCPCS: 87070; 87075; 87077; 87186; 87205 ==

== ENCOUNTER → 2020-11-27 08:54 | Outpatient (ROUT) | payer MEDICARE, MEDICAID, SELFPAY ==
[2020-11-27 09:33] LABS: Hemoglobin A1C% w Est Avg Glu 6.5 % (4.0-6.0)
[2020-11-27 09:44] LABS: BUN Creatinine Ratio 11.9 (6-22); Blood Urea Nitrogen 14 mg/dL (9-20); Calcium 8.7 mg/dL (8.4-10.2); Carbon Dioxide 27 mmol/L (22-32); Chloride 102 mmol/L (98-107); Estimated Glomerular Filt Rate > 60.0 mL/min (>60); Glucose 123 mg/dL (70-100); HEMOLYSIS < 15 (0-50); Potassium 3.5 mmol/L (3.4-5.1); Sodium 136 mmol/L (137-145)
== END ==
PROVIDERS: PCP Internal Medicine; Visit Provider Nurse Practitioner Family
DX: E11.9 Type 2 diabetes mellitus without complications (principal)
CPT/HCPCS: 36415; 80048; 83036

== ENCOUNTER 2020-12-01 10:19 | Inpatient (IN) | payer MEDICARE, MEDICAID, SELFPAY ==
[2020-12-01] VITALS (19 sets, daily range): BP systolic 130–180; BP diastolic 78–93; PULSE 75–92; RESP 17–18; TEMP 36.3–36.6; O2SAT 94–97; BMI 40.6; BMI 41.5
--- NOTE | 2020-12-01 10:28 | ED_ITS ---
HPI - General Adult General Chief complaint: Skin/Abscess/Foreign Body Stated complaint: Groin pain Time Seen by Provider: 12/01/20 10:24 Source: patient Mode of arrival: EMS Limitations: no limitations History of Present Illness HPI narrative: Patient is a 55-year-old male. Is an insulin-dependent diabetic that has bilateral [id number] amputations who is here for evaluation of worsening redness and pain to his right groin. He was seen in the general surgery office couple days ago where he had a incision and drainage and packing of an abscess in his right groin. Review of the note shows that this was fairly small on looks to be relatively straightforward. He was started on doxycycline. He has been taking this antibiotic as directed. He returns today for increasing redness and discomfort over the area. He denies any fevers. No problems urinating. Related Data Home Medications Medication Instructions Recorded Confirmed acetaminophen 500 mg capsule 500 mg PO Q6H PRN 11/26/20 11/26/20 amlodipine 10 mg tablet 10 mg PO DAILY 11/26/20 11/26/20 atorvastatin 40 mg tablet 40 mg PO DAILY 11/26/20 11/26/20 bisacodyl 10 mg rectal suppository 10 mg [place] DAILY PRN 11/26/20 11/26/20 carvedilol 12.5 mg tablet 12.5 mg PO BID 11/26/20 11/26/20 diphenhydramine HCl 25 mg capsule 25 mg PO BEDTIME 11/26/20 11/26/20 docusate sodium 250 mg capsule 250 mg PO DAILY 11/26/20 11/26/20 ferrous sulfate 325 mg (65 mg 325 mg PO DAILY 11/26/20 11/26/20 iron) tablet fluoxetine 40 mg capsule 40 mg PO DAILY 11/26/20 11/26/20 folic acid 400 mcg tablet 0.4 mg PO DAILY 11/26/20 11/26/20 furosemide 40 mg tablet 40 mg PO DAILY 11/26/20 11/26/20 hydralazine 50 mg tablet 50 mg PO TID 11/26/20 11/26/20 hydroxyzine pamoate 25 mg capsule 25 mg PO BEDTIME 11/26/20 11/26/20 insulin glargine 100 unit/mL (3 10 unit SUBCUT QPM 11/26/20 11/26/20 mL) subcutaneous pen levothyroxine 137 mcg capsule 137 mcg PO DAILY 11/26/20 11/26/20 loperamide 2 mg capsule 2 mg PO Q6H PRN 11/26/20 11/26/20 losartan 50 mg tablet 50 mg PO DAILY 11/26/20 11/26/20 magnesium hydroxide 400 mg/5 mL 5 ml PO DAILY PRN 11/26/20 11/26/20 oral suspension melatonin 3 mg capsule 3 mg PO BEDTIME PRN 11/26/20 11/26/20 multivitamin 1 tab PO DAILY 11/26/20 11/26/20 nitroglycerin 0.4 mg sublingual 0.4 mg SUBLINGUAL Q5M PRN 11/26/20 11/26/20 tablet nystatin 100,000 unit/mL oral 100,000 unit PO DAILY 11/26/20 11/26/20 suspension ondansetron HCl 4 mg tablet 4 mg PO Q8H 11/26/20 11/26/20 pantoprazole 40 mg tablet,delayed 40 mg PO DAILY 11/26/20 11/26/20 release polyethylene glycol 3350 17 17 g PO DAILY 11/26/20 11/26/20 gram/dose oral powder pramoxine-zinc acetate 1 %-0.1 % 1 applic TOPICAL TID PRN 11/26/20 11/26/20 lotion semaglutide 0.25 mg SUBCUT QWEEK 11/26/20 11/26/20 ticagrelor 90 mg tablet 90 mg PO BID 11/26/20 11/26/20 trazodone 50 mg tablet 50 mg PO DAILY 11/26/20 11/26/20 Allergies Allergy/AdvReac Type Severity Reaction Status Date / Time No Known Drug Allergies Allergy Verified 12/01/20 10:31 Review of Systems Constitutional Constitutional: Denies fever(s) Cardiovascular Cardiovascular: Denies chest pain and Denies dyspnea Respiratory Respiratory: Denies dyspnea Gastrointestinal Gastrointestinal: Denies abdominal pain Genitourinary Genitourinary: Denies dysuria Genitourinary: Denies dysuria Integumentary/Breasts Comments: Increasing redness right groin Neurologic Neurologic: Denies behavioral changes Psychiatric Psychiatric: Denies behavioral changes Hematologic/Lymphatic On Anticoagulants: Yes Allergic/Immunologic Allergic/Immunologic: Denies urticaria Patient History Medical History (Updated 12/01/20 @ 11:44 by Lizandro Issa DO) ASCVD (arteriosclerotic cardiovascular disease) Diabetes Hyperlipidemia Hypertension Hypothyroidism (acquired) Morbid obesity Surgical History S/P bilateral BKA (below knee amputation) Social History Smoking Status: Current every day smoker alcohol intake: never Smoking Status: Current some day smoker tobacco type: cigarettes alcohol intake frequency: holidays/special occasions only Substance Use Type: does not use Exam Initial Vital Signs Initial Vital Signs: Vital Signs Pulse Rate 85 12/01/20 10:23 Blood Pressure 180/78 H 12/01/20 10:23 Pulse Oximetry 94 12/01/20 10:23 Const General: cooperative and comfortable Limitations: mental status not altered HENMT Head: normal to inspection and normocephalic Resp Effort & Inspection: normal respiratory effort Cardio Rate: regular rate GI Inspection: non-distended Palpation: soft Scrotum: other (Redness right side of scrotum) Testes: normal Skin Other: Patient with large area of redness involving the right inguinal area and right inner thigh and the right side of the scrotum. The packing is in place in the patient states that he was changed this morning. There is no active drainage or bleeding. Neuro General: patient alert, patient awake and patient oriented x3 Psych Appearance: grossly normal and well kempt Course Orders Ordered: ED Orders 12/01/20 10:30 CT pelvis w con Stat 12/01/20 10:31 Complete Blood Count AUTO DIFF Stat 12/01/20 10:32 Comprehensive Metabolic Panel Stat Lactate (Lactic Acid) Stat Lipase Stat 12/01/20 10:34 Procalcitonin Stat 12/01/20 11:28 Blood Culture Stat 12/01/20 12:12 COVID19 - ADMIT ([employer] swab/PCR) Stat Ceftriaxone Sodium/Dextrose (Rocephin) 1 gm in 50 mls @ 100 mls/hr IV NOW ONE Stop: 12/01/20 12:36 Last Admin: 12/01/20 12:20 Dose: 100 mls/hr Documented by: Discontinued Medications Sodium Chloride (Normal Saline 0.9%) 1,000 mls @ 1,000 mls/hr IV BOLUS ONE Stop: 12/01/20 11:29 Last Admin: 12/01/20 11:34 Dose: 1,000 mls/hr Documented by: Vital Signs Vital signs: Vital Signs - 8 hr 12/01/20 10:23 12/01/20 10:30 12/01/20 10:31 Temperature 97.8 F Pulse Rate 85 83 78 Respiratory Rate 18 Blood Pressure 180/78 H 180/78 H Pulse Oximetry 94 96 95 12/01/20 11:04 12/01/20 11:30 12/01/20 12:00 Temperature Pulse Rate 82 80 80 Respiratory Rate Blood Pressure Pulse Oximetry 97 95 96 Medical Decision Making Lab Data Result diagrams: 12/01/20 10:45 12/01/20 10:45 Labs: Lab Results 12/01/20 12/01/20 12/01/20 Range/Units 10:45 10:45 10:45 WBC 8.8 (4.5-11.0) X10^3/uL RBC 5.10 (4.5-5.9) X10^6/uL Hgb 14.4 (13.5-17.5) g/dL Hct 41.7 (41-53) % MCV 81.7 (80-100) fL MCH 28.2 (26-34) PG MCHC 34.6 (30-36) % RDW 15.3 H (11.6-14.8) % Plt Count 203 (150-400) X10^3/uL Neut % (Auto) 77.6 H (50-75) % Lymph % (Auto) 12.2 L (25-40) % [place] % (Auto) 5.0 (3-14) % Eos % (Auto) 4.0 (2-4) % Baso % (Auto) 1.2 (0-2) % Neut # (Auto) 6900 (3365-9147) /uL Lymph # (Auto) 1100 (5927-5065) /uL [place] # (Auto) 400 (0-900) /uL Eos # (Auto) 400 (0-450) /uL Baso # (Auto) 100 (0-100) /uL Sodium 140 (137-145) mmol/L Potassium 3.4 (3.4-5.1) mmol/L Chloride 104 (98-107) mmol/L Carbon Dioxide 28 (22-32) mmol/L BUN 14 (9-20) mg/dL Creatinine 1.28 H (0.66-1.25) mg/dL Estimated GFR 57.9 L (>60) mL/min BUN/Creatinine Ratio 10.9 (6-22) Glucose 153 H (70-100) mg/dL Lactate 1.2 (0.7-2.1) mmol/L Calcium 9.1 (8.4-10.2) mg/dL Total Bilirubin 0.3 (0.2-1.3) mg/dL AST 23 (17-59) IU/L ALT 22 (<50) IU/L Alkaline Phosphatase 99 (38-126) U/L Total Protein 6.8 (6.3-8.2) g/dL Albumin 4.0 (3.5-5.0) g/dL Globulin 2.8 (1.7-4.1) g/dL Albumin/Globulin Ratio 1.4 (1.0-2.8) Lipase 73 (23-300) U/L Procalcitonin (<0.5) ng/mL 12/01/ Range/Units 10:45 WBC (4.5-11.0) X10^3/uL RBC (4.5-5.9) X10^6/uL Hgb (13.5-17.5) g/dL Hct (41-53) % MCV (80-100) fL MCH (26-34) PG MCHC (30-36) % RDW (11.6-14.8) % Plt Count (150-400) X10^3/uL Neut % (Auto) (50-75) % Lymph % (Auto) (25-40) % [place] % (Auto) (3-14) % Eos % (Auto) (2-4) % Baso % (Auto) (0-2) % Neut # (Auto) (4564-1074) /uL Lymph # (Auto) (1755-2475) /uL [place] # (Auto) (0-900) /uL Eos # (Auto) (0-450) /uL Baso # (Auto) (0-100) /uL Sodium (137-145) mmol/L Potassium (3.4-5.1) mmol/L Chloride (98-107) mmol/L Carbon Dioxide (22-32) mmol/L BUN (9-20) mg/dL Creatinine (0.66-1.25) mg/dL Estimated GFR (>60) mL/min BUN/Creatinine Ratio (6-22) Glucose (70-100) mg/dL Lactate (0.7-2.1) mmol/L Calcium (8.4-10.2) mg/dL Total Bilirubin (0.2-1.3) mg/dL AST (17-59) IU/L ALT (<50) IU/L Alkaline Phosphatase (38-126) U/L Total Protein (6.3-8.2) g/dL Albumin (3.5-5.0) g/dL Globulin (1.7-4.1) g/dL Albumin/Globulin Ratio (1.0-2.8) Lipase (23-300) U/L Procalcitonin 0.09 (<0.5) ng/mL Imaging Data CT scan - abdomen/pelvis: Radiologist's Impression: [address] [id number] Scan ReportSigned Patient: [facility]#: [id number]: 1965Acct:[id number]/Sex: 55 / MDate of Service: 12/01/20Loc: EDAccession Number: [id number] Procedure: CT pelvis w con Ordering Provider: Lizandro Issa D.O. PROCEDURE: CT PELVIS W CON INDICATIONS: Right inguinal cellulitis eval for deep infection TECHNIQUE: After the administration of intravenous contrast, 5 mm thick sections acquired from the iliac crests to the symphysis. 5 mm coronal and sagittal reformats were acquired. For radiation dose reduction, the following was used: automated exposure control, adjustment of mA and/or kV according to patient size. COMPARISON: [facility], CT, CT ABDOMEN PELVIS WO CON, 05/24/2020, 18:27. FINDINGS: Image quality: Excellent. Peritoneum and bowel: Bowel loops demonstrate normal wall thickness and caliber. No free fluid or air. Genitourinary: Bladder is within normal limits. Nodes and vessels: Enlarged right groin lymph node measuring 1.5 cm short axis diameter, (2/49), partially visualized on the prior CT. Small right external iliac node measuring 1.4 cm, (2/32), remotely 1 cm. This is likely reactive. Iliac vessels demonstrate normal size and enhancement. Bones: No suspicious bony lesions. Mild sclerosis at the SI joints, unchanged. L5-S1 degenerative change. Right groin soft tissue thickening, subcutaneous fat stranding, and skin ulceration, (2). No fluid collection. Miscellaneous: No inguinal hernias. Trace left hydrocele IMPRESSION: 1. Right groin skin ulcer with surrounding skin thickening and inflammatory change in the subcutaneous fat. Findings most compatible with cellulitis or phlegmon. No loculated fluid collection to suggest abscess. 2. Mildly enlarged right groin lymph nodes are most likely reactive. 3. No intra-abdominal/pelvic free fluid. 4. Trace left hydrocele, presumably unrelated. Dictated by: Richard Atkinson M.D. on 12/01/2020 at 10:28 Approved by: Richard Atkinson M.D. on 12/01/2020 at 10:37 MDM Narrative Medical decision making narrative: Patient has reassuring labs and reassuring vital signs however he does have expanding redness around his right groin area where the incision and drainage was performed. The packing is in place. CT scan shows no deep infection however his findings today are consistent with a cellulitis that seems to be worsening despite the oral antibiotics. There was most likely a component of a dermatitis from the the bandages or the briefs that he is wearing. However given his other comorbidities I do feel that admission f or IV antibiotics is warranted. There was a culture obtained from earlier this month from this site. So antibiotics will be tailored according to this. I did discuss this with the patient. He expressed understanding agreement. I did discuss with the hospitalist who accepts for IV antibiotics for Discharge Plan Departure Patient Disposition: Admitted as Observation Clinical Impression: Cellulitis Admit Date/Time: 12/01/20 12:13 Admit Provider: Jayme Sharif
[2020-12-01 11:13] LABS: Add Manual Diff / Slide Review NO; Basophils Absolute Auto 100 /uL (0-100); Basophils Percent Auto 1.2 % (0-2); Eosinophils Absolute Auto 400 /uL (0-450); Hematocrit 41.7 % (41-53); Hemoglobin 14.4 g/dL (13.5-17.5); Lymphocytes Absolute Auto 1100 /uL (1100-4500); Lymphocytes Percent Auto 12.2 % (25-40); Mean Corpuscular HGB Conc 34.6 % (30-36); Mean Corpuscular Hemoglobin 28.2 PG (26-34); Mean Corpuscular Volume 81.7 fL (80-100); Monocytes Absolute Auto 400 /uL (0-900); Neutrophils Absolute Auto 6900 /uL (1500-7000); Neutrophils Percent Auto 77.6 % (50-75); Platelet Count 203 X10^3/uL (150-400); Red Cell Distribution Width 15.3 % (11.6-14.8); White Blood Cell Count 8.8 X10^3/uL (4.5-11.0)
[2020-12-01 11:26] LABS: Lactate (Lactic Acid) 1.2 mmol/L (0.7-2.1)
[2020-12-01 11:27] LABS: Alanine Aminotransferase 22 IU/L (<50); Albumin Globulin Ratio 1.4 (1.0-2.8); Alkaline Phosphatase 99 U/L (38-126); Aspartate Aminotransferase 23 IU/L (17-59); BUN Creatinine Ratio 10.9 (6-22); Bilirubin Total 0.3 mg/dL (0.2-1.3); Blood Urea Nitrogen 14 mg/dL (9-20); Calcium 9.1 mg/dL (8.4-10.2); Carbon Dioxide 28 mmol/L (22-32); Chloride 104 mmol/L (98-107); Estimated Glomerular Filt Rate 57.9 mL/min (>60); Globulin 2.8 g/dL (1.7-4.1); Glucose 153 mg/dL (70-100); HEMOLYSIS < 15 (0-50); Lipase 73 U/L (23-300); Potassium 3.4 mmol/L (3.4-5.1); Sodium 140 mmol/L (137-145); Total Protein 6.8 g/dL (6.3-8.2)
[2020-12-01] MEDS: SODIUM CHLORIDE 0.9% 1,000 ML 1000 ML IV (11:34)
[2020-12-01 11:44] LABS: Procalcitonin 0.09 ng/mL (<0.5)
[2020-12-01] MEDS: CEFTRIAXONE 1 GM/50 ML FROZ.PIGGY IV (12:20)
--- NOTE | 2020-12-01 13:27 | PC.NURSE ---
Day shift: Pt on unit at approx 1320. Oriented to room and call light. VS ok. Ra 97%. Using urinal in bed at this time. Pt's home med list placed in chart.
[2020-12-01 13:36] LABS: COVID19 - ADMIT (NP swab/PCR) Negative (Negative)
[2020-12-01] MEDS: NYSTATIN POWDER 15GM 1 APPLIC TOP ×2 (14:30→21:28)
[2020-12-01] MEDS: HYDRALAZINE 25 MG TABLET 50 MG PO ×2 (14:43→21:27)
--- NOTE | 2020-12-01 15:14 | P.HP_ITS ---
History of Present Illness History of Present Illness Date Patient Seen: 12/01/20 Time Patient Seen: 14:30 Date of Onset of Symptoms: 12/01/20 Chief complaint: Groin pain Narrative: MR. Breen is a 55M with PMH of DM, HTN, HL hypothyroid, Depression, CAD, s/p bilateral BKA, morbid obesity active smoker who presents with right groin pain itchiness discomfort after having a recent I and D of an abscess. Patient states that he developed a right groin lump several weeks ago. He resides at assisted living facility and cultures were done that showed Proteus was resistant to multiple antibiotics and also alpha hemolytic strep. He was having some drainage previously and then had been started on doxycycline. He had his I and D done on November 26 and then was discharged back to his assisted living facility. Actually presents now with right discomfort in his groin and worsening erythema that is been noted. He is denying any fevers or chills is 9 headaches dizziness or lightheadedness. He is denying any visual changes or blurry vision. He is denying any chest pain shortness of breath abdominal pain nausea vomiting or diarrhea. Denies any edema in his legs or any weakness. He presented to the emergency room he was noted to have normal vital signs. Further workup was done he did not have an elevated white count he had a normal procalcitonin. CT was done to rule out any evidence of gas and there is no evidence that he had necrotizing fasciitis. He was started on IV ceftriaxone given a dose in the emergency room. Given that he had previously been on oral antibiotics he was deemed to have failed his oral antibiotics and started on IV antibiotics. He was admitted for further treatment and evaluation. Patient History Medical History ASCVD (arteriosclerotic cardiovascular disease) Diabetes Hyperlipidemia Hypertension Hypothyroidism (acquired) Morbid obesity Surgical History S/P bilateral BKA (below knee amputation) Family & Social History Family History Mother No problems noted. Family history unavailable: No Social History: household members other Prior Living Arrangements Assisted Living Safety & Behavioral: Feels Safe in Current Yes Environment Been Physically Hurt or No Threatened By a Person Suicidal Ideation Description None Suicide Plan Description No Plan Tobacco & Substance use: Tobacco type cigarettes Smoking Status Current every day smoker Smoking packs per day 0.5 alcohol intake never alcohol intake frequency holiday/special occasion Substance Use Type does not use Meds Home Medications and Allergies Home Medications Medication Instructions Recorded Confirmed Type acetaminophen 500 mg capsule 500 mg PO Q6H PRN 11/26/20 12/01/20 History amlodipine 10 mg tablet 10 mg PO DAILY 11/26/20 12/01/20 History atorvastatin 40 mg tablet 40 mg PO DAILY 11/26/20 12/01/20 History carvedilol 12.5 mg tablet 25 mg PO BID 11/26/20 12/01/20 History docusate sodium 250 mg capsule 250 mg PO DAILY 11/26/20 12/01/20 History ferrous sulfate 325 mg (65 mg 325 mg PO DAILY 11/26/20 12/01/20 History iron) tablet fluoxetine 40 mg capsule 40 mg PO DAILY 11/26/20 12/01/20 History folic acid 400 mcg tablet 0.4 mg PO DAILY 11/26/20 12/01/20 History furosemide 40 mg tablet 40 mg PO DAILY 11/26/20 12/01/20 History hydralazine 50 mg tablet 50 mg PO TID 11/26/20 12/01/20 History hydroxyzine pamoate 25 mg capsule 25 mg PO BEDTIME PRN 11/26/20 12/01/20 History insulin glargine 100 unit/mL (3 70 unit SUBCUT QPM 11/26/20 12/01/20 History mL) subcutaneous pen levothyroxine 137 mcg capsule 137 mcg PO DAILY 11/26/20 12/01/20 History loperamide 2 mg capsule 2 mg PO Q6H PRN 11/26/20 12/01/20 History losartan 50 mg tablet 50 mg PO DAILY 11/26/20 12/01/20 History melatonin 3 mg capsule 6 mg PO BEDTIME 11/26/20 12/01/20 History multivitamin 1 tab PO DAILY 11/26/20 12/01/20 History nitroglycerin 0.4 mg sublingual 0.4 mg SUBLINGUAL Q5M PRN 11/26/20 12/01/20 History tablet ondansetron HCl 4 mg tablet 4 mg PO Q8H PRN 11/26/20 12/01/20 History pantoprazole 40 mg tablet,delayed 40 mg PO DAILY 11/26/20 12/01/20 History release semaglutide 1 mg SUBCUT QWEEK 11/26/20 12/01/20 History ticagrelor 90 mg tablet 90 mg PO BID 11/26/20 12/01/20 History trazodone 50 mg tablet 50 mg PO QPM 11/26/20 12/01/20 History doxycycline monohydrate 100 mg PO BID 12/01/20 12/01/20 History ibuprofen 800 mg PO Q8H PRN 12/01/20 12/01/20 History isosorbide mononitrate 60 mg PO DAILY 12/01/20 12/01/20 History nystatin 1 applic TOPICAL BID PRN 12/01/20 12/01/20 History Allergies Allergy/AdvReac Type Severity Reaction Status Date / Time No Known Drug Allergies Allergy Verified 12/01/20 10:31 Review of Systems Review of Systems Narrative: 14 systems were asked and patient denied except what is noted in HPI ROS: Yes All systems reviewed with the patient and are negative except as otherwise documented Exam Vital Signs (past 8 hours): - 12/01/20 10:23 12/01/20 10:30 12/01/20 10:31 Temperature 97.8 F Pulse Rate 85 83 78 Respiratory Rate 18 Blood Pressure 180/78 H 180/78 H Pulse Oximetry 94 96 95 12/01/20 11:04 12/01/20 11:30 12/01/20 12:00 Temperature Pulse Rate 82 80 80 Respiratory Rate Blood Pressure Pulse Oximetry 97 95 96 12/01/20 12:30 12/01/20 12:31 12/01/20 13:00 Temperature Pulse Rate 78 78 75 Respiratory Rate Blood Pressure 148/82 H Pulse Oximetry 95 96 97 12/01/20 13:03 12/01/20 13:04 12/01/20 13:30 Temperature 97.4 F L Pulse Rate 77 77 Respiratory Rate 18 Blood Pressure 155/93 H 149/82 H Pulse Oximetry 96 96 12/01/20 14:43 Temperature Pulse Rate 77 Respiratory Rate Blood Pressure 149/82 H Pulse Oximetry Oxygen Delivery Method Room Air Oxygen Flow Rate 0 Narrative Exam Narrative: GEN: no acute distress, alert HEENT: normocephalic atraumatic, moist mucous membranes EYES: PERRL, extraocular movements intact RESP: clear bilaterally no wheezes rhonchi or rales CARDS: regular rate and rhythm no murmurs GI: normal bowel sounds, no tenderness to palpation, no organomegaly palpated SKIN: right groin has large area of erythema, I+D site noted with no pus expressed EXT: has bilateral BKA well healed NEURO: awake alert and oriented x3, moving all extremities with no deficits g rossly PSYCH: appropriate and pleasant mood Objective Labs Result Diagrams: 12/01/20 10:45 12/01/20 10:45 Labs: Laboratory Results - last 24 hr 12/01/20 12/01/20 12/01/20 10:45 10:45 10:45 WBC 8.8 RBC 5.10 Hgb 14.4 Hct 41.7 MCV 81.7 MCH 28.2 MCHC 34.6 RDW 15.3 H Plt Count 203 Neut % (Auto) 77.6 H Lymph % (Auto) 12.2 L Carroll % (Auto) 5.0 Eos % (Auto) 4.0 Baso % (Auto) 1.2 Neut # (Auto) 6900 Lymph # (Auto) 1100 Carroll # (Auto) 400 Eos # (Auto) 400 Baso # (Auto) 100 Sodium 140 Potassium 3.4 Chloride 104 Carbon Dioxide 28 BUN 14 Creatinine 1.28 H Estimated GFR 57.9 L BUN/Creatinine Ratio 10.9 Glucose 153 H Lactate 1.2 Calcium 9.1 Total Bilirubin 0.3 AST 23 ALT 22 Alkaline Phosphatase 99 Total Protein 6.8 Albumin 4.0 Globulin 2.8 Albumin/Globulin Ratio 1.4 Lipase 73 Procalcitonin SARS-CoV-2 (PCR) 12/01/20 12/01/20 10:45 12:20 WBC RBC Hgb Hct MCV MCH MCHC RDW Plt Count Neut % (Auto) Lymph % (Auto) Carroll % (Auto) Eos % (Auto) Baso % (Auto) Neut # (Auto) Lymph # (Auto) Carroll # (Auto) Eos # (Auto) Baso # (Auto) Sodium Potassium Chloride Carbon Dioxide BUN Creatinine Estimated GFR BUN/Creatinine Ratio Glucose Lactate Calcium Total Bilirubin AST ALT Alkaline Phosphatase Total Protein Albumin Globulin Albumin/Globulin Ratio Lipase Procalcitonin 0.09 SARS-CoV-2 (PCR) Negative Assessment & Plan Assessment & Plan narrative: Mr. Mendez is a 55-year-old male with the past medical history of diabetes hypertension hyperlipidemia depression hypothyroidism CAD morbid obesity smoking also status post bilateral BKA who presented after recent right groin I and D failed outpatient antibiotics found to have cellulitis admitted for IV antibiotics 1. Cellulitis-has approximately 6 in area of erythema that inflammatory changes on CT scan CT scan did not show any evidence of gas objects. White count and temperature are normal. Procalcitonin is normal. Given that he had no evidence of a recently documented of any cellulitis per surgeon's notes and inflammatory changes on CT this is consistent with a cellulitis. He has failed outpatient doxycycline. He has had recent cultures there is able to view which showed Proteus and alpha hemolytic strep. Ceftriaxone 2 g Q 24 to should be able to treat both of these. We will MRSA swab him to rule this out. Follow-up blood cultures. Follow size of a cellulitis. Also treat for Yancy with topical nystatin. Possibly will need PICC for long-term antibiotics 2. Type 2 Diabetes on long-term insulin with complications of hypertension hyperlipidemia will continue him on his home dose of insulin and his home hypertensive and medications for which he has a long list including losartan coreg and amlodipine. Will continue his atorvastatin. 3. Hypothyroidism continue his Synthroid 4. Active smoker patient declines nicotine patch for now on counselled smoking cessation 5. Depression continue his home dose of fluoxetine 6. CAD. continue ticagrelor 7. Morbid obesity with BMI of 41.6. Order diabetic diet. 8. Bilateral BKA. problem stable DVT ppx: lovenox 40u SC Diet: diabetic No IVF Code status: confirmed as full with patient and POLST form sent from his [facility] COVID-19 COVID-19 status: Negative Result date/Date tested (Pos, Neg/Pending): 12/01/20 Time Spent With Patient Time with patient: 15-24 minutes Quality MIPS - Admit Advanced Care Plan / Current Medications Measures: #47 ? Advanced Care Plan Clinician documentation instruction: document at admission. [] I confirmed that the patient's Advance Care Plan is present, code status is d ocumented, or surrogate decision maker is listed in the patient?s medical record. [SATISFIES [facility] PERFORMANCE] If Yes, Stop Here [] The patient?s Advance Care plan is not present because: (select) [MIPS PERFORMANCE EXCEPTION/EXCLUSION] [] I confirmed today that the patient does not wish or was not able to name a surrogate decision maker or provide an Advance Care Plan. [] Hospice care is currently being provided or has been provided this calendar year [] I did NOT confirm today the presence of an Advance Care Plan or surrogate decision maker documented within the patient's medical record. [DOES NOT SATISFY MIPS PERFORMANCE] #130 - Documentation of Current Medications in the Medical Record Clinician documentation instruction: use macro the first time you see a patient. [] I have utilized all available immediate resources to obtain, update, or review the patient?s current medications. [SATISFIES MIPS PERFORMANCE] If Yes, Stop Here [] The patient is not eligible for medication reconciliation; the patient is in an emergent medical situation where delaying treatment would jeopardize the patient?s health. [MIPS PERFORMANCE EXCEPTION/EXCLUSION] [] I did NOT confirm, update or review the patient's current list of medications today. [DOES NOT SATISFY MIPS PERFORMANCE] MIPS - CL Central Venous Catheter Placement Measure: #76 ? Prevention of Central Venous Catheter (CVC) ? Related Bloodstream Infection Clinician documentation instruction: use macro every time you place a central line. [] All elements of Maximal Sterile Barrier Technique, including hand hygiene, sk in prep, and sterile ultrasound technique (if used) were followed. [SATISFIES MIPS PERFORMANCE] If Yes, Stop Here [] If ?No?, the medical reason all elements were NOT used for medical reason [] (ex. emergent condition). [] Maximal Sterile Barrier Technique was not followed, no reason provided [DOES NOT SATISFY MIPS PERFORMANCE] MIPS - DC Heart Failure Measures: #5 - Heart Failure (HF): Angiotensin-Converting Enzyme ( ISIDORO) Inhibitor or Angiotensin Receptor Vicki (ARB) Therapy for Left Ventricular Systolic Dysfunction (LVSD) and #8 - Heart Failure (HF): Beta-Vicki Therapy for Left Ventricular Systolic Dysfunction (LVSD) Clinician documentation instruction: use macro at every CHF discharge. [] The patient has current or prior documentation of left ventricular ejection fraction (LVEF) less than 40%, or moderate or severely depressed left ventricular systolic function. Answer both: [SATISFIES MIPS PERFORMANCE] [] The patient was prescribed or already taking an Angiotensin-Converting Enzyme (ISIDORO) Inhibitor, or Angiotensin Receptor Vicki (ARB). [] The patient was prescribed or already taking a beta-vicki. If Yes to Both, Stop Here [] Patient not prescribed/taking: [MIPS PERFORMANCE EXCEPTION/EXCLUSION] [] ISIDORO or ARB for medical/patient/system reason(s) including [] (ex. allergy, intolerance, contraindication) [] Beta-vicki for medical/patient/system reason(s) including [] (ex. allergy, intolerance, contraindication) [] Patient not prescribed/taking: [DOES NOT SATISFY MIPS PERFORMANCE] [] ISIDORO or ARB, no reason given [] Beta-vicki, no reason given
[2020-12-01] MEDS: INSULIN GLARGINE 100 UNIT/ML 3ML PEN 70 UNIT SUBCUT (17:05)
[2020-12-01] MEDS: MELATONIN 3 MG TABLET 6 MG PO (21:27)
[2020-12-01] MEDS: carvediloL 12.5 MG TABLET 25 MG PO (21:27)
[2020-12-02] VITALS (12 sets, daily range): BP systolic 119–173; BP diastolic 63–99; PULSE 80–87; RESP 16–22; TEMP 36.3–36.8; O2SAT 94–97
[2020-12-02 05:41] LABS: Add Manual Diff / Slide Review NO; Basophils Absolute Auto 100 /uL (0-100); Eosinophils Absolute Auto 300 /uL (0-450); Eosinophils Percent Auto 3.8 % (2-4); Hematocrit 42.3 % (41-53); Hemoglobin 14.6 g/dL (13.5-17.5); Lymphocytes Absolute Auto 1400 /uL (1100-4500); Lymphocytes Percent Auto 15.5 % (25-40); Mean Corpuscular HGB Conc 34.5 % (30-36); Mean Corpuscular Hemoglobin 28.2 PG (26-34); Mean Corpuscular Volume 81.6 fL (80-100); Monocytes Absolute Auto 500 /uL (0-900); Monocytes Percent Auto 6.2 % (3-14); Neutrophils Absolute Auto 6400 /uL (1500-7000); Neutrophils Percent Auto 73.5 % (50-75); Platelet Count 196 X10^3/uL (150-400); Red Blood Cell Count 5.18 X10^6/uL (4.5-5.9); Red Cell Distribution Width 15.5 % (11.6-14.8); White Blood Cell Count 8.7 X10^3/uL (4.5-11.0)
[2020-12-02 05:53] LABS: BUN Creatinine Ratio 10.4 (6-22); Blood Urea Nitrogen 11 mg/dL (9-20); Carbon Dioxide 26 mmol/L (22-32); Chloride 105 mmol/L (98-107); Estimated Glomerular Filt Rate > 60.0 mL/min (>60); Glucose 92 mg/dL (70-100); HEMOLYSIS < 15 (0-50); Potassium 3.4 mmol/L (3.4-5.1); Sodium 139 mmol/L (137-145)
[2020-12-02] MEDS: ISOSORBIDE MONONITRATE ER 30 MG TABLET 60 MG PO (06:11)
[2020-12-02] MEDS: LEVOTHYROXINE 137 MCG TABLET PO (06:11)
[2020-12-02] MEDS: PANTOPRAZOLE 40 MG TABLET PO (06:11)
[2020-12-02] MEDS: ATORVASTATIN 20 MG TABLET 40 MG PO (08:49)
[2020-12-02] MEDS: FOLIC ACID 0.4 MG TABLET PO (08:50)
[2020-12-02] MEDS: AMLODIPINE 5 MG TABLET 10 MG PO (08:50)
[2020-12-02] MEDS: FUROSEMIDE 40 MG TABLET PO (08:50)
[2020-12-02] MEDS: FLUoxetine 20 MG CAPSULE 40 MG PO (08:50)
[2020-12-02] MEDS: LOSARTAN 50 MG TABLET PO (08:51)
[2020-12-02] MEDS: carvediloL 12.5 MG TABLET 25 MG PO ×2 (08:51→21:00)
[2020-12-02] MEDS: CLOPIDOGREL 75 MG TABLET PO (08:51)
[2020-12-02] MEDS: HYDRALAZINE 25 MG TABLET 50 MG PO ×3 (08:51→21:01)
[2020-12-02] MEDS: FERROUS SULFATE 325 MG TABLET PO (08:52)
[2020-12-02] MEDS: ENOXAPARIN 40 MG/0.4 ML SYRINGE SUBCUT (08:52)
[2020-12-02] MEDS: MULTIVITAMIN 1 TABLET 1 TAB PO (08:52)
--- NOTE | 2020-12-02 09:27 | CM.DANOTE ---
Patient is a 55 year old male who was admitted on 12/01/20 for Groin Pain. Pt has MCR and [employer] for insurance and his PCP is Dr. Tavia Zarate. EMR was reviewed. Per MD, pt with hx bilateral BKAs and recent I&D of right groin abscess and admitted with cellulitis and failed outpt oral abx. Pt may need residential IV-Abx at d/c pending cultures. EMILY met bedside with pt and explained role and he confirms he lives at [facility] for the past year and has a hx of SNF at [facility] after his BKA. Pt's mother Nery is his DPOA and lives in [place] where his brothers do as well. Pt mostly w/c bound due to bilateral BKAs. Pt states he is also working on moving to [facility] or [facility] on [address] to be closer to his family as well. SW provided the SNF choice list and pt aware that he will likely need at least 7 days IV-Abx and that this cannot be provided at [facility] and his preference is [facility] again. EMILY called [facility] admissions with new referral for IV-Abx prior to return to [facility]. [facility] reviewed and can accept on Ceftriaxone but will need 3 night qualifying stay for Medicare to cover prior to admitting pt at their facility. HOMAR Trejo confirming Inpt Status from time of admit today. PASRR completed. EMILY called [facility] at [facility] and left [facility] with update on likely d/c plan to [facility]. Plan: SW to follow for confirming start of pt's Inpt Status and plan of [facility] at d/c for IV-Abx prior to return to [facility]. ORLANDO Santo Discharge Planning/Care Management Advanced directive, confirm from FAMILY Start: 12/01/20 14:15 Freq: Q24H Status: Active Protocol: Document 12/01/20 14:15 YAD (Rec: 12/01/20 14:17 YAD [id number]) Advance Directive, confirm on record Time 14:16 Person contacted patient Copy received No CM Discharge Assessment Start: 12/02/20 09:23 Freq: Status: Active Protocol: Document 12/02/20 09:23 BF (Rec: 12/02/20 09:26 BF [id number]) Discharge Planning Assessment Assigned Fructose Loader ORLANDO Segura DPOA/Assigned Designee Name mother Nery Contact Information [phone] Advance Directives? Yes Advance Directives on File No History Provided By Patient,Medical Record Has Patient been admitted in last 30 No days? Prior Living Arrangements Assisted Living Household Members other Type of transporation used prior to Relies on Others admit Facility Name Admitted From: [facility] Willing to Return to Facility? Yes Independent with ADL's No Is patient alert and oriented? Yes Needs Assistance With Meal Prep,Managing Medications ,Home Chores / Shopping Caregiver for Another No DME Already Rented / Owned Wheelchair Patient/Family Preference Senior Care Facility Comment Likely terminal manager IV-Abx at d/c Discharge Plan Senior Care Facility Transportation Arrangement Facility van if SNF or return to [facility] Referrals Initiated Senior Care Additional Comment [facility] reviewing Medicare Choice List Provided Yes SNF/HH Preference [facility] Has Agency SNF been contacted Yes Whiteboard Updated in Patient Room with Yes name and ext. # of Fructose Loader Review Status In Process Please Provide Date Initial DC 12/02/20 Assessment Was Performed Next Review Type Continued Stay Review
--- NOTE | 2020-12-02 11:48 | DI.RAD.S_ITS ---
PROCEDURE: XR CHEST 1V INDICATIONS: PICC placement confirmation TECHNIQUE: One view of the chest was acquired. COMPARISON: [facility], CT, CT ABDOMEN PELVIS WO CON, 05/24/2020, 18:27. [facility], CR, XR CHEST 1V, 02/23/2020, 13:26. FINDINGS: Semi upright positioning. Surgical changes and devices: Left-sided PICC line with the catheter tip projecting over the upper or middle 3rd of the SVC. Lungs and pleura: Lungs are clear. No pleural effusions or pneumothorax. Mediastinum: Mediastinal contours appear normal. Heart size is normal. Bones and chest wall: No suspicious bony lesions. Overlying soft tissues appear unremarkable. IMPRESSION: Left-sided PICC with the catheter tip projecting over the upper or middle 3rd of the SVC. Dictated by: Richard Atkinson M.D. on 12/02/2020 at 11:04 Approved by: Richard Atkinson M.D. on 12/02/2020 at 11:07
[2020-12-02] MEDS: CEFTRIAXONE 2 GM/50 ML FROZ.PIGGY IV (13:31)
[2020-12-02] MEDS: NYSTATIN POWDER 15GM 1 APPLIC TOP ×2 (13:32→21:36)
[2020-12-02] MEDS: SODIUM CHLORIDE 0.9% FLUSH 10 ML IV ×2 (13:32→21:01)
--- NOTE | 2020-12-02 14:55 | P.PN_ITS ---
Subjective Subjective Date Patient Seen: 12/02/20 Time Patient Seen: 09:00 Interval history: Today he has no complaints. No fevers, no pain. He has had a PICC line before and understands it is recommended for antibiotics. Exam Vital Signs (past 8 hours): - 12/02/20 07:00 12/02/20 07:35 12/02/20 11:00 Temperature 97.6 F 97.5 F L Pulse Rate 84 83 Respiratory Rate 21 20 Blood Pressure 173/99 H 119/77 Pulse Oximetry 97 94 94 Oxygen Delivery Method Room Air Oxygen Flow Rate 0 Narrative Exam Narrative: GEN: no acute distress, alert HEENT: normocephalic atraumatic, moist mucous membranes EYES: PERRL, extraocular movements intact RESP: clear bilaterally no wheezes rhonchi or rales CARDS: regular rate and rhythm no murmurs GI: normal bowel sounds, no tenderness to palpation, no organomegaly palpated SKIN: right groin has large area of erythema, I+D site noted with no pus expr essed EXT: has bilateral BKA well healed NEURO: awake alert and oriented x3, moving all extremities with no deficits grossly PSYCH: appropriate and pleasant mood Objective Labs Result Diagrams: 12/02/20 05:23 12/02/20 05:23 Labs: Laboratory Results - last 24 hr 12/01/20 12/02/20 12/02/20 16:01 05:23 05:23 WBC 8.7 RBC 5.18 Hgb 14.6 Hct 42.3 MCV 81.6 MCH 28.2 MCHC 34.5 RDW 15.5 H Plt Count 196 Neut % (Auto) 73.5 Lymph % (Auto) 15.5 L Winn % (Auto) 6.2 Eos % (Auto) 3.8 Baso % (Auto) 1.0 Neut # (Auto) 6400 Lymph # (Auto) 1400 Winn # (Auto) 500 Eos # (Auto) 300 Baso # (Auto) 100 Sodium 139 Potassium 3.4 Chloride 105 Carbon Dioxide 26 BUN 11 Creatinine 1.06 Estimated GFR > 60.0 BUN/Creatinine Ratio 10.4 Glucose 92 Calcium 9.0 Nasal Screen MRSA (PCR) Negative for mrsa [facility] Medical History ASCVD (arteriosclerotic cardiovascular disease) Diabetes Hyperlipidemia Hypertension Hypothyroidism (acquired) Morbid obesity Surgical History S/P bilateral BKA (below knee amputation) Family History (Updated 12/01/20 @ 15:15 by Jayme Sharif MD) Mother No problems noted. Social History household members: other Smoking Status: Current every day smoker alcohol intake: never Assessment & Plan Assessment & Plan narrative: Assessment & Plan narrative: Mr. Mendez is a 55-year-old male with the past medical history of diabetes hypertension hyperlipidemia depression hypothyroidism CAD morbid obesity smoking also status post bilateral BKA who presented after recent right groin I and D failed outpatient antibiotics found to have cellulitis admitted for IV antibiotics 1. Cellulitis-has approximately 6 in area of erythema that inflammatory changes on CT scan CT scan did not show any evidence of gas objects. White count and temperature are normal. Procalcitonin is normal. Given that he had no evidence of a recently documented of any cellulitis per surgeon's notes and inflammatory changes on CT this is consistent with a cellulitis. He has failed outpatient doxycycline. He has had recent cultures there is able to view which showed Proteus and alpha hemolytic strep. Ceftriaxone 2 gm IV Q 24 to should be able to treat both of these. MRSA negative and blood cx negative to date. Cellulitis improving. Also treat for Yancy with topical nystatin. PICC for care home antibiotics is ordered. 2. Type 2 Diabetes on long-term insulin with complications of hypertension hyperlipidemia will continue him on his home dose of insulin and his home hypertensive and medications for which he has a long list including losartan coreg and amlodipine. Will continue his atorvastatin. 3. Hypothyroidism continue his Synthroid 4. Active smoker patient declines nicotine patch for now and was counselled smoking cessation 5. Depression continue his home dose of fluoxetine 6. CAD. continue ticagrelor 7. Morbid obesity with BMI of 41.6. Order diabetic diet. 8. Bilateral BKA. problem stable in hospital DVT ppx: lovenox 40u SC Diet: diabetic No IVF Code status: confirmed as full with patient and POLST form sent from his [facility] Quality MIPS - Admit Advanced Care Plan / Current Medications Measures: #47 ? Advanced Care Plan Clinician documentation instruction: document at admission. [] I confirmed that the patient's Advance Care Plan is present, code status is documented, or surrogate decision maker is listed in the patient?s medical record. [SATISFIES MIPS PERFORMANCE] If Yes, Stop Here [] The patient?s Advance Care plan is not present because: (select) [MIPS PERFORMANCE EXCEPTION/EXCLUSION] [] I confirmed today that the patient does not wish or was not able to name a surrogate decision maker or provide an Advance Care Plan. [] Hospice care is currently being provided or has been provided this calendar year [] I did NOT confirm today the presence of an Advance Care Plan or surrogate decision maker documented within the patient's medical record. [DOES NOT SATISFY MIPS PERFORMANCE] #130 - Documentation of Current Medications in the Medical Record Clinician documentation instruction: use macro the first time you see a patient. [] I have utilized all available immediate resources to obtain, update, or review the patient?s current medications. [SATISFIES MIPS PERFORMANCE] If Yes, Stop Here [] The patient is not eligible for medication reconciliation; the patient is in an emergent medical situation where delaying treatment would jeopardize the pa tient?s health. [MIPS PERFORMANCE EXCEPTION/EXCLUSION] [] I did NOT confirm, update or review the patient's current list of medications today. [DOES NOT SATISFY MIPS PERFORMANCE] MIPS - CL Central Venous Catheter Placement Measure: #76 ? Prevention of Central Venous Catheter (CVC) ? Related Bloodstream Infection Clinician documentation instruction: use macro every time you place a central line. [] All elements of Maximal Sterile Barrier Technique, including hand hygiene, skin prep, and sterile ultrasound technique (if used) were followed. [SATISFIES MIPS PERFORMANCE] If Yes, Stop Here [] If ?No?, the medical reason all elements were NOT used for medical reason [] (ex. emergent condition). [] Maximal Sterile Barrier Technique was not followed, no reason provided [DOES NOT SATISFY MIPS PERFORMANCE] MIPS - DC Heart Failure Measures: #5 - Heart Failure (HF): Angiotensin-Converting Enzyme (ISIDORO) Inhibitor or Angiotensin Receptor Vicki (ARB) Therapy for Left Ventricular Systolic Dysfunction (LVSD) and #8 - Heart Failure (HF): Beta-Vicki Therapy for Left Ventricular Systolic Dysfunction (LVSD) Clinician documentation instruction: use macro at every CHF discharge. [] The patient has current or prior documentation of left ventricular ejection fraction (LVEF) less than 40%, or moderate or severely depressed left ventricular systolic function. Answer both: [SATISFIES MIPS PERFORMANCE] [] The patient was prescribed or already taking an Angiotensin-Converting Enzyme (ISIDORO) Inhibitor, or Angiotensin Receptor Vicki (ARB). [] The patient was prescribed or already taking a beta-vicki. If Yes to Both, Stop Here [] Patient not prescribed/taking: [MIPS PERFORMANCE EXCEPTION/EXCLUSION] [] ISIDORO or ARB for medical/patient/system reason(s) including [] (ex. allergy, intolerance, contraindication) [] Beta-vicki for medical/patient/system reason(s) including [] (ex. allergy, intolerance, contraindication) [] Patient not prescribed/taking: [DOES NOT SATISFY MIPS PERFORMANCE] [] ISIDORO or ARB, no reason given [] Beta-vicki, no reason given
[2020-12-02] MEDS: DIPHENOXYLATE/ATROP 2.5/0.025 TABLET 1 EACH PO (17:03)
[2020-12-02] MEDS: INSULIN GLARGINE 100 UNIT/ML 3ML PEN 70 UNIT SUBCUT (17:25)
[2020-12-02] MEDS: MELATONIN 3 MG TABLET 6 MG PO (20:59)
[2020-12-03] VITALS (11 sets, daily range): BP systolic 120–137; BP diastolic 69–97; PULSE 87–93; RESP 16–18; TEMP 36.5–37.1; O2SAT 93–96
[2020-12-03] MEDS: hydrOXYzine pamoate 25 MG CAPSULE PO ×2 (04:07→15:44)
--- NOTE | 2020-12-03 04:13 | PC.NURSE ---
C/O slight pruritus to his BUTCH, PICC dressing site. No erythema noted, medicated with 25 mg. of PO Vistaril for itching. Will cont. POC & monitor.
[2020-12-03] MEDS: LEVOTHYROXINE 137 MCG TABLET PO (05:22)
[2020-12-03] MEDS: ISOSORBIDE MONONITRATE ER 30 MG TABLET 60 MG PO (06:50)
[2020-12-03] MEDS: AMLODIPINE 5 MG TABLET 10 MG PO (08:32)
[2020-12-03] MEDS: FUROSEMIDE 40 MG TABLET PO (08:32)
[2020-12-03] MEDS: LOSARTAN 50 MG TABLET PO (08:33)
[2020-12-03] MEDS: CLOPIDOGREL 75 MG TABLET PO (08:33)
[2020-12-03] MEDS: HYDRALAZINE 25 MG TABLET 50 MG PO ×3 (08:33→21:19)
[2020-12-03] MEDS: FERROUS SULFATE 325 MG TABLET PO (08:33)
[2020-12-03] MEDS: FLUoxetine 20 MG CAPSULE 40 MG PO (08:33)
[2020-12-03] MEDS: ATORVASTATIN 20 MG TABLET 40 MG PO (08:33)
[2020-12-03] MEDS: FOLIC ACID 0.4 MG TABLET PO (08:33)
[2020-12-03] MEDS: MULTIVITAMIN 1 TABLET 1 TAB PO (08:33)
[2020-12-03] MEDS: carvediloL 12.5 MG TABLET 25 MG PO ×2 (08:33→21:19)
[2020-12-03] MEDS: SODIUM CHLORIDE 0.9% FLUSH 10 ML IV ×3 (08:34→21:20)
[2020-12-03] MEDS: PANTOPRAZOLE 40 MG TABLET PO (08:35)
--- NOTE | 2020-12-03 09:23 | P.PN_ITS ---
Subjective Subjective Date Patient Seen: 12/03/20 Time Patient Seen: 08:15 Interval history: He has no new issues today. PICC placed yesterday succesfully. No pain, no fever. Exam Vital Signs (past 8 hours): - 12/03/20 03:00 12/03/20 08:00 12/03/20 09:02 Temperature 98.1 F 98.0 F Pulse Rate 90 90 Respiratory Rate 16 18 Blood Pressure 132/69 129/97 H Pulse Oximetry 95 95 95 Oxygen Delivery Method Room Air Oxygen Flow Rate 0 Narrative Exam Narrative: GEN: no acute distress, alert HEENT: normocephalic atraumatic, moist mucous membranes EYES: PERRL, extraocular movements intact RESP: clear bilaterally no wheezes rhonchi or rales CARDS: regular rate and rhythm no murmurs GI: normal bowel sounds, no tenderness to palpation, no organomegaly palpated SKIN: right groin has large area of erythema, I+D site noted with no pus expressed EXT: has bilateral BKA well healed NEURO: awake alert and oriented x3, moving all extremities with no deficits grossly PSYCH: appropriate and pleasant mood Objective Labs Result Diagrams: 12/02/20 05:23 12/02/20 05:23 [facility] Medical History ASCVD (arteriosclerotic cardiovascular disease) Diabetes Hyperlipidemia Hypertension Hypothyroidism (acquired) Morbid obesity Surgical History S/P bilateral BKA (below knee amputation) Family History (Updated 12/01/20 @ 15:15 by Jayme Sharif MD) Mother No problems noted. Social History household members: other Smoking Status: Current every day smoker alcohol intake: never Assessment & Plan Assessment & Plan narrative: Mr. Mendez is a 55-year-old male with the past medical history of diabetes hypertension hyperlipidemia depression hypothyroidism CAD morbid obesity smoking also status post bilateral BKA who presented after recent right groin I and D failed outpatient antibiotics found to have cellulitis admitted for IV antibiotics 1. Cellulitis-has approximately 6 in area of erythema that inflammatory changes on CT scan CT scan did not show any evidence of gas objects. White count and temperature are normal. Procalcitonin is normal. Given that he had no evidence of a recently documented of any cellulitis per surgeon's notes and inflammatory changes on CT this is consistent with a cellulitis. He has failed outpatient doxycycline. He has had recent cultures there is able to view which showed Proteus and alpha hemolytic strep. Ceftriaxone 2 gm IV Q 24 to should be able to treat both of these. MRSA negative and blood cx negative to date. Cellulitis improving. Also treat for Yancy with topical nystatin. PICC for correction antibiotics is ordered. 2. Type 2 Diabetes on long-term insulin with complications of hypertension hyperlipidemia will continue him on his home dose of insulin and his home hypertensive and medications for which he has a long list including losartan coreg and amlodipine. Will continue his atorvastatin. 3. Hypothyroidism continue his Synthroid 4. Active smoker patient declines nicotine patch for now and was counselled smoking cessation 5. Depression continue his home dose of fluoxetine 6. CAD. continue ticagrelor 7. Morbid obesity with BMI of 41.6. Order diabetic diet. 8. Bilateral BKA. problem stable in hospital DVT ppx: lovenox 40u SC Diet: diabetic No IVF Dispo: stable for DC to SNF Code status: confirmed as full with patient and POLST form sent from his [facility] Quality MIPS - Admit Advanced Care Plan / Current Medications Measures: #47 ? Advanced Care Plan Clinician documentation instruction: document at admission. [] I confirmed that the patient's Advance Care Plan is present, code status is documented, or surrogate decision maker is listed in the patient?s medical record. [SATISFIES [facility] PERFORMANCE] If Yes, Stop Here [] The patient?s Advance Care plan is not present because: (select) [[facility] PERFORMANCE EXCEPTION/EXCLUSION] [] I confirmed today that the patient does not wish or was not able to name a surrogate decision maker or provide an Advance Care Plan. [] Hospice care is currently being provided or has been provided this calendar year [] I did NOT confirm today the presence of an Advance Care Plan or surrogate decision maker documented within the patient's medical record. [DOES NOT SATISFY [facility] PERFORMANCE] #130 - Documentation of Current Medications in the Medical Record Clinician documentation instruction: use macro the first time you see a patient. [] I have utilized all available immediate resources to obtain, update, or review the patient?s current medications. [SATISFIES [facility] PERFORMANCE] If Yes, Stop Here [] The patient is not eligible for medication reconciliation; the patient is in an emergent medical situation where delaying treatment would jeopardize the patient?s health. [MIPS PERFORMANCE EXCEPTION/EXCLUSION] [] I did NOT confirm, update or review the patient's current list of medications today. [DOES NOT SATISFY MIPS PERFORMANCE] MIPS - CL Central Venous Catheter Placement Measure: #76 ? Prevention of Central Venous Catheter (CVC) ? Related Bloodstream Infection Clinician documentation instruction: use macro every time you place a central line. [] All elements of Maximal Sterile Barrier Technique, including hand hygiene, skin prep, and sterile ultrasound technique (if used) were followed. [SATISFIES MIPS PERFORMANCE] If Yes, Stop Here [] If ?No?, the medical reason all elements were NOT used for medical reason [] (ex. emergent condition). [] Maximal Sterile Barrier Technique was not followed, no reason provided [DOES NOT SATISFY MIPS PERFORMANCE] MIPS - DC Heart Failure Measures: #5 - Heart Failure (HF): Angiotensin-Converting Enzyme (ISIDORO) Inhibitor or Angiotensin Receptor Vicki (ARB) Therapy for Left Ventricular Systolic Dysfunction (LVSD) and #8 - Heart Failure (HF): Beta-Vicki Therapy for Left Ventricular Systolic Dysfunction (LVSD) Clinician documentation instruction: use macro at every CHF discharge. [] The patient has current or prior documentation of left ventricular ejection fraction (LVEF) less than 40%, or moderate or severely depressed left ventricula r systolic function. Answer both: [SATISFIES MIPS PERFORMANCE] [] The patient was prescribed or already taking an Angiotensin-Converting Enzyme (ISIDORO) Inhibitor, or Angiotensin Receptor Vicki (ARB). [] The patient was prescribed or already taking a beta-vicki. If Yes to Both, Stop Here [] Patient not prescribed/taking: [MIPS PERFORMANCE EXCEPTION/EXCLUSION] [] ISIDORO or ARB for medical/patient/system reason(s) including [] (ex. allergy, intolerance, contraindication) [] Beta-vicki for medical/patient/system reason(s) including [] (ex. allergy, intolerance, contraindication) [] Patient not prescribed/taking: [DOES NOT SATISFY MIPS PERFORMANCE] [] ISIDORO or ARB, no reason given [] Beta-vicik, no reason given
[2020-12-03] MEDS: CEFTRIAXONE 2 GM/50 ML FROZ.PIGGY IV (11:43)
[2020-12-03] MEDS: MELATONIN 3 MG TABLET 6 MG PO (21:20)
[2020-12-04 02:50] VITALS: BP 111/64; PULSE 86; RESP 86; TEMP 36.2; O2SAT 96
[2020-12-04] MEDS: LEVOTHYROXINE 137 MCG TABLET PO (05:29)
[2020-12-04] MEDS: PANTOPRAZOLE 40 MG TABLET PO (06:18)
[2020-12-04] MEDS: ISOSORBIDE MONONITRATE ER 30 MG TABLET 60 MG PO (06:54)
[2020-12-04 07:00] VITALS: BP 134/87; PULSE 85; RESP 19; TEMP 36.7; O2SAT 95
[2020-12-04 07:50] VITALS: O2SAT 96
[2020-12-04] MEDS: MULTIVITAMIN 1 TABLET 1 TAB PO (09:56)
[2020-12-04] MEDS: HYDRALAZINE 25 MG TABLET 50 MG PO ×2 (09:56→13:49)
[2020-12-04] MEDS: FUROSEMIDE 40 MG TABLET PO (09:56)
[2020-12-04] MEDS: FOLIC ACID 0.4 MG TABLET PO (09:56)
[2020-12-04] MEDS: FERROUS SULFATE 325 MG TABLET PO (09:57)
[2020-12-04] MEDS: CLOPIDOGREL 75 MG TABLET PO (09:57)
[2020-12-04] MEDS: carvediloL 12.5 MG TABLET 25 MG PO (09:57)
[2020-12-04] MEDS: LOSARTAN 50 MG TABLET PO (09:57)
[2020-12-04] MEDS: FLUoxetine 20 MG CAPSULE 40 MG PO (09:58)
[2020-12-04] MEDS: SODIUM CHLORIDE 0.9% FLUSH 10 ML IV (09:59)
[2020-12-04] MEDS: AMLODIPINE 5 MG TABLET 10 MG PO (09:59)
[2020-12-04 11:00] VITALS: BP 113/73; PULSE 84; RESP 18; TEMP 36.3; O2SAT 95
[2020-12-04] MEDS: CEFTRIAXONE 2 GM/50 ML FROZ.PIGGY IV (12:24)
[2020-12-04 13:04] LABS: COVID19 - ADMIT (NP swab/PCR) Negative (Negative)
--- NOTE | 2020-12-04 13:35 | CM.DPNOTE ---
February from [facility] called at 1:30 pm to let us know patient will be picked up at 3:30 pm with Arminda AVILA's phone number [phone]. I passed this information on to Mercedez Villalobos RN and Phuong. Angelita Rae CM Asst.
--- NOTE | 2020-12-04 13:45 | CM.DPC ---
DCP/continued: Reviewed EMR. Order obtained from provider for patient to d/c to [facility] for continued IV abx. Faxed orders and PASRR to [facility] per request. Bernice reports that they can accept and plan to pick patient up around 3:30pm. RN updated and given number to call nursing report. In addition, REAL ESTATE ASSOCIATE ATTORNEY met with patient to confirm plan. Patient very agreeable to plan. Copy of Important Message from Medicare provided to patient. P: [facility] today. ORLANDO Esteban
--- NOTE | 2020-12-04 21:29 | P.DS_ITS ---
History of Present Illness History of Present Illness Chief complaint: Groin pain Narrative: MR. Breen is a 55M with PMH of DM, HTN, HL hypothyroid, Depression, CAD, s/p bilateral BKA, morbid obesity active smoker who presents with right groin pain itchiness discomfort after having a recent I and D of an abscess. Patient states that he developed a right groin lump several weeks ago. He resides at assisted living facility and cultures were done that showed Proteus was resistant to multiple antibiotics and also alpha hemolytic strep. He was having some drainage previously and then had been started on doxycycline. He had his I and D done on November 26 and then was discharged back to his assisted living facility. Actually presents now with right discomfort in his groin and worsening erythema that is been noted. He is denying any fevers or chills is 9 headaches dizziness or lightheadedness. He is denying any visual changes or blurry vision. He is denying any chest pain shortness of breath abd ominal pain nausea vomiting or diarrhea. Denies any edema in his legs or any weakness. He presented to the emergency room he was noted to have normal vital signs. Further workup was done he did not have an elevated white count he had a normal procalcitonin. CT was done to rule out any evidence of gas and there is no evidence that he had necrotizing fasciitis. He was started on IV ceftriaxone g iven a dose in the emergency room. Given that he had previously been on oral antibiotics he was deemed to have failed his oral antibiotics and started on IV antibiotics. He was admitted for further treatment and evaluation. Discharge Providers Provider Date of admission: 12/01/20 12:13 Discharge Date: 12/04/20 Primary care physician: Tavia Zarate MD Consults: 12/02/20 08:09 Consult After Hours PICC Line RN Routine Comment: Discharge provider: Jayme Sharif MD Summary Hospital Course Discharge Diagnosis: 1. Cellulitis 2. Type 2 DM with HTN, HL on outplacement consultant insulin 3. Hypothyroidism 4. Active smoker 5. Depression 6. CAD 7. Morbid obesity 8. Bilateral BKA Hospital Course: Mr. Del Cid came in with a cellulitis that had developed in his right groin after a recent I and D. Cultures were used from swab done before abscess drainage. This showed proteus and alpha hemolytic strep that was sensitive to ceftriaxone. He was planned for a 7 day course of 2gm q24, as he had failed outpatient therapy. In addition there was evidence of nicolas and he was ordered for nystatin. He was discharged with a PICC to help administer antibiotics and this should be removed once antibiotics are finished. The rest of his medical issues remained stable in the hospital. 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 Code status: Full Status at Discharge Cognitive/behavioral status at discharge: oriented Functional status at discharge: independent ambulation Overall status at discharge: patient is back to baseline Time Spent with Patient Time spent: Greater than 30 minutes Time spent discussing smoking cessation with patient: 3 to 10 minutes Exam Vital Signs (past 8 hours): Oxygen Delivery Method Room Air Oxygen Flow Rate 0 Narrative Exam Narrative: GEN: no acute distress, alert HEENT: normocephalic atraumatic, moist mucous membranes EYES: PERRL, extraocular movements intact RESP: clear bilaterally no wheezes rhonchi or rales CARDS: regular rate and rhythm no murmurs GI: normal bowel sounds, no tenderness to palpation, no organomegaly palpated SKIN: right groin has large area of erythema, I+D site noted with no pus expressed EXT: has bilateral BKA well healed NEURO: awake alert and oriented x3, moving all extremities with no deficits grossly PSYCH: appropriate and pleasant mood Objective Labs Result Diagrams: 12/02/20 05:23 12/02/20 05:23 Labs: Laboratory Results - last 24 hr 12/04/20 12:05 SARS-CoV-2 (PCR) Negative [facility] Medical History ASCVD (arteriosclerotic cardiovascular disease) Diabetes Hyperlipidemia Hypertension Hypothyroidism (acquired) Morbid obesity Surgical History S/P bilateral BKA (below knee amputation) Family History (Updated 12/01/20 @ 15:15 by Jayme Sharif MD) Mother No problems noted. Social History household members: other Smoking Status: Current every day smoker alcohol intake: never Discharge Plan Discharge Plan Patient Disposition: SNF Provider Discharge Comment: Mr. Del Cid came to the hospital with redness of his right grain after having a recent abscess drained. He did not have any pus. He had no fevers. Previous cultures from the wound showed proteus and alpha hemolytic strep. MRSA swab negative. Both bacteria were sensitive to ceftriaxone. He was started on ceftriaxone IV 2gm daily. He was also noted to have evidence of nicolas infection and was ordered for nystatin powder. He improved with treatment. He is recommended to have IV ceftriaxone 2gm daily for a 7 day total course, last dose on 12/08/20. After this his PICC line may be removed. He can continue nystatin powder daily while evidence of nicolas. Discharge orders & Medications Prescriptions: New ceftriaxone in dextrose,iso-os 2 gram/50 mL Piggyback 2 gm IV Q24H Qty: 4 RF: 0 Continued Ozempic 0.25 mg or 0.5 mg(2 mg/1.5 mL) pen injector 1 mg SUBCUT QWEEK RF: 0 Lantus Solostar U-100 Insulin 100 unit/mL (3 mL) insulin pen 70 unit SUBCUT QPM RF: 0 acetaminophen 500 mg capsule 500 mg PO Q6H PRN (Reason: Pain (Scale Score 1-3)) RF: 0 fluoxetine 40 mg capsule 40 mg PO DAILY RF: 0 loperamide [Imodium A-D] 2 mg capsule 2 mg PO Q6H PRN (Reason: Loose Stool) RF: 0 docusate sodium 250 mg capsule 250 mg PO DAILY RF: 0 levothyroxine 137 mcg capsule 137 mcg PO DAILY RF: 0 losartan 50 mg tablet 50 mg PO DAILY RF: 0 furosemide [Lasix] 40 mg tablet 40 mg PO DAILY RF: 0 carvedilol 12.5 mg tablet 25 mg PO BID RF: 0 folic acid 400 mcg tablet 0.4 mg PO DAILY RF: 0 hydralazine 50 mg tablet 50 mg PO TID RF: 0 ferrous sulfate 325 mg (65 mg iron) tablet 325 mg PO DAILY RF: 0 multivitamin Tablet 1 tab PO DAILY RF: 0 amlodipine 10 mg tablet 10 mg PO DAILY RF: 0 hydroxyzine pamoate [Vistaril] 25 mg capsule 25 mg PO BEDTIME PRN (Reason: Spasms) RF: 0 atorvastatin 40 mg tablet 40 mg PO DAILY RF: 0 ondansetron HCl [Zofran] 4 mg tablet 4 mg PO Q8H PRN (Reason: Nausea) RF: 0 melatonin 3 mg capsule 6 mg PO BEDTIME RF: 0 ticagrelor 90 mg tablet 90 mg PO BID RF: 0 nitroglycerin 0.4 mg tablet, sublingual 0.4 mg sublingual Q5M PRN (Reason: Chest Pain) RF: 0 pantoprazole 40 mg tablet,delayed release (DR/EC) 40 mg PO DAILY RF: 0 isosorbide mononitrate 60 mg tablet extended release 24 hr 60 mg PO DAILY RF: 0 nystatin 100,000 unit/gram cream 1 applic TOPICAL BID PRN (Reason: Rash) RF: 0 ibuprofen 800 mg Tablet 800 mg PO Q8H PRN (Reason: Pain (Scale Score 1-3)) RF: 0 trazodone 50 mg tablet 50 mg PO QPM Qty: 6 RF: 0 Discontinued doxycycline monohydrate 100 mg tablet 100 mg PO BID RF: 0 Follow up/Referrals: Tavia Zarate MD [Primary Care Provider] - Discharge Health Status Multidrug resistant organism: No MDRO Diet/Activity/Treatments Diet: Low-sodium Food texture: Regular [facility] Rehab type: Physical therapy Discharge Data Primary Care Provider: Tavia Zarate Quality MIPS - Admit Advanced Care Plan / Current Medications Measures: #47 ? Advanced Care Plan Clinician documentation instruction: document at admission. [] I confirmed that the patient's Advance Care Plan is present, code status is documented, or surrogate decision maker is listed in the patient?s medical record. [SATISFIES MIPS PERFORMANCE] If Yes, Stop Here [] The patient?s Advance Care plan is not present because: (select) [MIPS PERFORMANCE EXCEPTION/EXCLUSION] [] I confirmed today that the patient does not wish or was not able to name a surrogate decision maker or provide an Advance Care Plan. [] Hospice care is currently being provided or has been provided this calendar year [] I did NOT confirm today the presence of an Advance Care Plan or surrogate decision maker documented within the patient's medical record. [DOES NOT SATISFY MIPS PERFORMANCE] #130 - Documentation of Current Medications in the Medical Record Clinician documentation instruction: use macro the first time you see a patient. [] I have utilized all available immediate resources to obtain, update, or review the patient?s current medications. [SATISFIES MIPS PERFORMANCE] If Yes, Stop Here [] The patient is not eligible for medication reconciliation; the patient is in an emergent medical situation where delaying treatment would jeopardize the patient?s health. [MIPS PERFORMANCE EXCEPTION/EXCLUSION] [] I did NOT confirm, update or review the patient's current list of medications today. [DOES NOT SATISFY MIPS PERFORMANCE] MIPS - CL Central Venous Catheter Placement Measure: #76 ? Prevention of Central Venous Catheter (CVC) ? Related Bloodstream Infection Clinician documentation instruction: use macro every time you place a central line. [] All elements of Maximal Sterile Barrier Technique, including hand hygiene, skin prep, and sterile ultrasound technique (if used) were followed. [SATISFIES MIPS PERFORMANCE] If Yes, Stop Here [] If ?No?, the medical reason all elements were NOT used for medical reason [] (ex. emergent condition). [] Maximal Sterile Barrier Technique was not followed, no reason provided [DOES NOT SATISFY MIPS PERFORMANCE] MIPS - DC Heart Failure Measures: #5 - Heart Failure (HF): Angiotensin-Converting Enzyme (ISIDORO) Inhibitor or Angiotensin Receptor Vicki (ARB) Therapy for Left Ventricular Systolic Dysfunction (LVSD) and #8 - Heart Failure (HF): Beta-Vicki Therapy for Left Ventricular Systolic Dysfunction (LVSD) Clinician documentation instruction: use macro at every CHF discharge. [] The patient has current or prior documentation of left ventricular ejection fraction (LVEF) less than 40%, or moderate or severely depressed left ventricular systolic function. Answer both: [SATISFIES MIPS PERFORMANCE] [] The patient was prescribed or already taking an Angiotensin-Converting Enzyme (ISIDORO) Inhibitor, or Angiotensin Receptor Vicki (ARB). [] The patient was prescribed or already taking a beta-vicki. If Yes to Both, Stop Here [] Patient not prescribed/taking: [MIPS PERFORMANCE EXCEPTION/EXCLUSION] [] ISIDORO or ARB for medical/patient/system reason(s) including [] (ex. allergy, intolerance, contraindication) [] Beta-vicki for medical/patient/system reason(s) including [] (ex. allergy, intolerance, contraindication) [] Patient not prescribed/taking: [DOES NOT SATISFY MIPS PERFORMANCE] [] ISIDORO or ARB, no reason given [] Beta-vicki, no reason given
== END 2020-12-04 15:36 | DRG 603 ==
LOC: ED 11:59 → AC 12-02 11:39
PROVIDERS: Admitting Provider Internal Medicine; Emergency Provider Emergency Medicine; PCP Internal Medicine; Referring Provider Emergency Medicine; Visit Provider Internal Medicine
DX: L03.314 Cellulitis of groin (principal); Z68.41 Body mass index [BMI] 40.0-44.9, adult; B37.2 Candidiasis of skin and nail; E66.01 Morbid (severe) obesity due to excess calories; Z89.512 Acquired absence of left leg below knee; Z89.511 Acquired absence of right leg below knee; E11.9 Type 2 diabetes mellitus without complications; I10 Essential (primary) hypertension; E78.5 Hyperlipidemia, unspecified; E03.9 Hypothyroidism, unspecified; F32.9 Major depressive disorder, single episode, unspecified; I25.10 Atherosclerotic heart disease of native coronary artery without angina pectoris; F17.210 Nicotine dependence, cigarettes, uncomplicated; Z20.822 Contact with and (suspected) exposure to COVID-19; Z79.4 Long term (current) use of insulin
CPT/HCPCS: 36415; 36569; 71045; 72193; 80048; 80053; 82962; 83605; 83690; 84145; 85025; 87040; 87635; 87797; 96361; 96365; 99284; J0696; J1642; J1650; Q9967

== ENCOUNTER → 2020-12-18 11:07 | Outpatient (ROUT) | payer MEDICARE, MEDICAID, SELFPAY ==
[2020-12-01 13:45] VITALS: BMI 41.5
[2020-12-18 11:37] LABS: Add Manual Diff / Slide Review NO; Basophils Absolute Auto 200 /uL (0-100); Basophils Percent Auto 1.5 % (0-2); Eosinophils Absolute Auto 300 /uL (0-450); Hematocrit 43.5 % (41-53); Hemoglobin 14.9 g/dL (13.5-17.5); Lymphocytes Absolute Auto 2300 /uL (1100-4500); Lymphocytes Percent Auto 22.1 % (25-40); Mean Corpuscular HGB Conc 34.3 % (30-36); Mean Corpuscular Hemoglobin 28.5 PG (26-34); Mean Corpuscular Volume 83.2 fL (80-100); Monocytes Absolute Auto 500 /uL (0-900); Neutrophils Absolute Auto 7200 /uL (1500-7000); Neutrophils Percent Auto 68.4 % (50-75); Platelet Count 218 X10^3/uL (150-400); Red Blood Cell Count 5.22 X10^6/uL (4.5-5.9); Red Cell Distribution Width 15.7 % (11.6-14.8); White Blood Cell Count 10.5 X10^3/uL (4.5-11.0)
== END ==
PROVIDERS: PCP Internal Medicine; Visit Provider Internal Medicine
DX: Z79.899 Other long term (current) drug therapy (principal); Z00.00 Encounter for general adult medical examination without abnormal findings
CPT/HCPCS: 36415; 85025

== ENCOUNTER → 2021-02-07 07:55 | Outpatient (ROUT) | payer MEDICARE, MEDICAID, SELFPAY ==
[2020-12-01 13:45] VITALS: BMI 41.5
[2021-02-07 08:37] LABS: Add Manual Diff / Slide Review NO; Basophils Absolute Auto 100 /uL (0-100); Basophils Percent Auto 1.1 % (0-2); Eosinophils Absolute Auto 300 /uL (0-450); Eosinophils Percent Auto 2.8 % (2-4); Hematocrit 42.6 % (41-53); Hemoglobin 14.7 g/dL (13.5-17.5); Lymphocytes Absolute Auto 1900 /uL (1100-4500); Lymphocytes Percent Auto 21.5 % (25-40); Mean Corpuscular HGB Conc 34.4 % (30-36); Mean Corpuscular Hemoglobin 28.1 PG (26-34); Mean Corpuscular Volume 81.7 fL (80-100); Monocytes Absolute Auto 600 /uL (0-900); Monocytes Percent Auto 6.3 % (3-14); Neutrophils Absolute Auto 6200 /uL (1500-7000); Neutrophils Percent Auto 68.3 % (50-75); Platelet Count 197 X10^3/uL (150-400); Red Blood Cell Count 5.21 X10^6/uL (4.5-5.9); White Blood Cell Count 9.1 X10^3/uL (4.5-11.0)
[2021-02-07 08:48] LABS: BUN Creatinine Ratio 11.7 (6-22); Blood Urea Nitrogen 12 mg/dL (9-20); Calcium 8.9 mg/dL (8.4-10.2); Carbon Dioxide 25 mmol/L (22-32); Chloride 105 mmol/L (98-107); Estimated Glomerular Filt Rate > 60.0 mL/min (>60); Glucose 93 mg/dL (70-100); HEMOLYSIS < 15 (0-50); Potassium 3.5 mmol/L (3.4-5.1); Sodium 136 mmol/L (137-145)
[2021-02-07 09:08] LABS: Hemoglobin A1C% w Est Avg Glu 6.6 % (4.0-6.0)
== END ==
PROVIDERS: PCP Internal Medicine; Visit Provider Internal Medicine Cardiovascular Disease
DX: I25.10 Atherosclerotic heart disease of native coronary artery without angina pectoris (principal); I10 Essential (primary) hypertension; E78.5 Hyperlipidemia, unspecified; E11.9 Type 2 diabetes mellitus without complications
CPT/HCPCS: 36415; 80048; 83036; 85025